=== PATIENT | male | born 1950 | race Caucasian/White ===

== ENCOUNTER 2019-03-12 07:07 | Inpatient (IN) | payer OTHER, BC ==
[2019-03-09 11:28] VITALS: BMI 24.7
[2019-03-12] MEDS ORDERED: HEPARIN NA (PORCINE) 5,000 UNITS/ML 1ML VIAL ONE ×4 (07:15→12:08)
[2019-03-12] MEDS ORDERED: PAPAVERINE HCL 30 MG/1 ML 10 ML VIAL NR ONE ×2 (07:15→12:08)
[2019-03-12] MEDS ORDERED: LIDOCAINE HCL/PF 2% SDV 5ML VIAL ONE ×5 (07:21→12:52)
[2019-03-12] MEDS ORDERED: fentaNYL CITRATE 250 MCG/5 ML VIAL ONE (07:21)
[2019-03-12] MEDS ORDERED: PROPOFOL 20 ML ONE ×3 (07:22)
[2019-03-12] MEDS ORDERED: MIDAZOLAM HCL 2 MG/2 ML SINGLE DOSE VIAL ONE ×2 (07:22)
[2019-03-12] MEDS ORDERED: DEXAMETHASONE SOD PHOSPHATE 4 MG/1 ML VIAL ONE ×2 (07:23→15:16)
[2019-03-12] MEDS ORDERED: PHENYLEPHRINE HCL 10 MG/1 ML SINGLE DOSE VIAL ONE (07:23)
[2019-03-12] MEDS ORDERED: EPHEDRINE SULFATE/0.9% NACL/PF 50 MG/10 ML SYRINGE NR ONE (07:27)
[2019-03-12] MEDS ORDERED: SUCCINYLCHOLINE CHLORIDE 200 MG/10 ML SYRINGE ONE (07:27)
[2019-03-12] MEDS ORDERED: ROCURONIUM BROMIDE 50 MG/5 ML SYRINGE ONE ×3 (07:27→12:13)
--- NOTE | 2019-03-12 09:41 | HP ---
Admitting History and Physical - Admission History of Present Illness: 68 year old man active smoker who has now stopped, complained of pain in both legs and feet when walking several steps. 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 History Source: Patient Limitations to Obtaining History: No Limitations - Smoking History Smoking history: Former smoker Have you smoked in the past 12 months: Yes If you are a former smoker, when did you quit?: 3 weeks ago - Alcohol/Substance Use Hx Alcohol Use: No (stopped 5-6 months ago) Home Medications - Allergies Allergies/Adverse Reactions: Allergies Allergy/AdvReac Type Severity Reaction Status Date / Time No Known Allergies Allergy Verified 03/09/19 11:28 - Home Medications Home Medications: Ambulatory Orders Multivitamin [Multiple Vitamins] 1 each PO DAILY 03/09/19 Varenicline Tartrate [Chantix] 1 mg PO DAILY 03/09/19 traZODone HCL [Trazodone HCl] 100 mg PO HS 03/09/19 Physical Examination Vital Signs: Vital Signs Temperature 98.0 F 03/12/19 07:50 Pulse Rate 91 H 03/12/19 07:50 Respiratory Rate 20 03/12/19 07:50 Blood Pressure 147/90 03/12/19 07:50 O2 Sat by Pulse Oximetry (%) 97 03/12/19 08:13 Constitutional: Yes: No Distress Eyes: Yes: WNL HENT: Yes: WNL Neck: Yes: Supple Cardiovascular: Yes: Regular Rate and Rhythm Respiratory: Yes: Regular Gastrointestinal: Yes: Soft Extremities: Yes: Cool, Cyanosis Edema: No Peripheral Pulses WNL: No (Absent popliteal and pedal pulses bilaterally) Problem List - Problems (1) Atherosclerosis of lower extremity with rest pain Assessment/Plan: Plan bypass left femoral to tibial artery with vein. Angiogram and iliac stent if indicated. Code(s): I70.229 - ATHSCL [place] ARTERIES OF EXTRM W REST PAIN, UNSP EXTREMITY Qualifiers: Peripheral atherosclerosis artery type: [place] artery Laterality: bilateral Qualified Code(s): I70.223 - Atherosclerosis of [place] arteries of extremities with rest pain, bilateral legs
--- NOTE | 2019-03-12 09:51 | HP ---
History & Physical Update - History History: No Change - Physical Physical: No Change - Assessment Assessment: No Change - Plan Plan: No Change
[2019-03-12] MEDS ORDERED: CEFAZOLIN 2 GM/D5W 2 GM/50 ML ML IVPB ONE (09:54)
[2019-03-12] MEDS ORDERED: ceFAZolin SODIUM 1 GM VIAL IVPB ONE (10:15)
[2019-03-12] MEDS ORDERED: ceFAZolin SODIUM 1 GM VIAL ONE ×3 (10:24→22:10)
[2019-03-12] MEDS ORDERED: LIDOCAINE HCL 1%, 10 MG/ML (20ML VIAL) NR ONE (10:44)
[2019-03-12] MEDS ORDERED: HYDROmorphone HCl 2 MG/ML VIAL ONE (12:12)
[2019-03-12] MEDS ORDERED: SODIUM CHLORIDE 0.9% P/F 10 ML VIAL IJ ONE ×2 (13:14→14:11)
[2019-03-12] MEDS ORDERED: LIDOCAINE HCL 2% 100 MG/5 ML DISP.SYRIN ONE ×2 (13:33→14:10)
[2019-03-12] MEDS ORDERED: POVIDONE-IODINE OINTMENT 10% - 28.4 GM TUBE ONE (14:17)
--- NOTE | 2019-03-12 16:25 | OP ---
Operative Note - Note: Operative Date: 03/12/19 Pre-Operative Diagnosis: Ischemic left foot Operation: Angiogram left femoral and runoff. Left femoral endarterectomy, patch profundaplasty. Left femoral to anterior tibial bypass with in situ saphenous vein Findings: Severe occlusive atherosclerosis of left common, superficial and deep femoral arteries. Occlusion popliteal and proximal tibial arteries. Patent AT with run off to DP in foot. Implants: Thin wall Dacron patch Post-Operative Diagnosis: Same as Pre-op Surgeon: Дмитрий Dillon Plastic Welder: Sheyla Miranda Anesthesiologist/VP MARKETING: Keisha Keyes Anesthesia: General Estimated Blood Loss (mls): 300
[2019-03-12] MEDS ORDERED: PROMETHAZINE HCL 25 MG/1 ML VIAL IVPUSH PRN (16:43)
[2019-03-12] MEDS ORDERED: oxyCODONE HCL 5 MG TABLET PO PRN (16:43)
[2019-03-12] MEDS ORDERED: ONDANSETRON 4 MG/2 ML VIAL IVPUSH PRN (16:43)
[2019-03-12] MEDS ORDERED: ALBUTEROL SO4 0.5 % INH SOLN 2.5 MG/0.5 ML VIAL.NEB. NEB PRN (16:44)
[2019-03-12] MEDS ORDERED: ALBUTEROL SO4 2.5/IPRATROPIUM 0.5 INH SOL 3 ML VIAL.NEB. NEB ONE (16:44)
[2019-03-12] MEDS ORDERED: LACTATED RINGERS SOLUTION 1,000 ML IV SCH ×2 (16:45→17:45)
[2019-03-12] MEDS ORDERED: ALBUTEROL SO4 0.083% IH SOL 2.5 MG/3 ML VIAL.NEB. NEB ONE (16:46)
[2019-03-12] MEDS ORDERED: ACETAMINOPHEN 325 MG TABLET (FP) PO PRN (16:54)
[2019-03-12] MEDS ORDERED: DEXTROSE 5%-WATER - 1,000 ML IV SCH (17:00)
[2019-03-12 17:23] LABS: BASO % 0.5 % (0-2.0); EOS % 0.1 % (0-4.5); HEMATOCRIT 43.1 % (35.4-49); HEMOGLOBIN 14.3 GM/dL (11.7-16.9); LYMPH % 7.7 % (8-40); MCH 30.9 pg (25.7-33.7); MCHC 33.3 g/dl (32.0-35.9); MEAN CELL VOLUME 92.9 fl (80-96); MEAN PLT VOLUME 7.2 fl (7.5-11.1); NEUT % 90.7 % (42.8-82.8); PLATELET COUNT 280 K/MM3 (134-434); RBC 4.64 M/mm3 (4.00-5.60); RDW 13.1 % (11.9-15.9); WHITE BLOOD COUNT 11.8 K/mm3 (4.0-10.0)
--- NOTE | 2019-03-12 17:43 | SURG ---
Surgery Or Manager Note Or Manager: Sheyla Miranda PA-C Date of Service: 03/12/19 Diagnosis: Ischemic left foot Procedure: Angiogram left femoral and runoff. Left femoral endarterectomy, patch profundaplasty. Left femoral to anterior tibial bypass with in situ saphenous vein I was present for the entirety of the operative procedure. For further detail, please refer to operative report. Visit type - Case Type Case Type: Scheduled - Emergency Emergency Visit: No - New patient This patient is new to me today: Yes Date on this admission: 03/12/19
[2019-03-12 17:55] LABS: BLOOD UREA NITROGEN 9.6 mg/dL (7-18); CALCIUM 8.8 mg/dL (8.5-10.1); CREATININE 0.7 mg/dL (0.55-1.3); POTASSIUM 4.8 mmol/L (3.5-5.1)
--- NOTE | 2019-03-12 18:22 | CONSULT ---
Consultation: REQUESTING PROVIDER: Dr. Dillon CONSULT REQUEST: We have been asked to medically evaluate this patient for post op care s/p bypass left femoral to tibial artery with vein. HISTORY OF PRESENT ILLNESS: This is a 68 y/o M with no PMH who presented with numbness, pain, balance issues in left leg along with a pulsating sensation in his leg for over a year. Pt endorses to numbness and pain only after walking 6- 7 steps. Pt states the numbness is worse at night and better and slight movement of his leg helps with the numbness. 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 Pt currently denying any chest pain, sob, nausea, or vomiting. Pt has a lingering productive cough. Pt presented to the ICU for close monitoring s/p Left femoral and Left femoral to anterior tibial bypass with in situ saphenous vein endarterectomy with patch profundaplasty. Operative report: Angiogram left femoral and runoff. Operation- Left femoral endarterectomy with patch profundaplasty. Left femoral to anterior tibial bypass with in situ saphenous vein Findings: Severe occlusive atherosclerosis of left common, superficial and deep femoral arteries. Occlusion popliteal and proximal tibial arteries. Patent anterior tibial with run off to dorsalis pedis in foot. 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 REVIEW OF SYSTEMS: negative except as above PHYSICAL EXAMINATION Vital Signs - 24 hr 03/12/19 03/12/19 03/12/19 07:50 08:13 16:34 Temperature 98.0 F 98.7 F Pulse Rate 91 H 112 H Respiratory 20 18 Rate Blood Pressure 147/90 159/83 O2 Sat by Pulse 97 92 L Oximetry (%) 03/12/19 03/12/19 03/12/19 16:50 17:05 17:20 Temperature Pulse Rate 101 H 102 H 104 H Respiratory 18 20 18 Rate Blood Pressure 154/81 152/77 134/75 O2 Sat by Pulse 95 94 L 93 L Oximetry (%) 03/12/19 17:40 Temperature 98.5 F Pulse Rate 106 H Respiratory 18 Rate Blood Pressure 154/77 O2 Sat by Pulse 93 L Oximetry (%) GENERAL: Awake, alert, and fully oriented, in no acute distress. HEAD: Normal with no signs of trauma. LUNGS: Breath sounds equal, wheezing present b/l worse in the bases. HEART: tachycardic, hypotensive regular rhythm, normal S1 and S2 without murmur , rub or gallop. ABDOMEN: Soft, nontender, not distended, no guarding, no rebound. LOWER EXTREMITIES: 2+ pulses, warm, well-perfused. No calf tenderness. No peripheral edema. Pt able to move his toes, pt has right foot bony deformity. PSYCHIATRIC: Cooperative. Good eye contact. Appropriate mood and affect. SKIN: Warm, dry, no rashes or lesions noted. Laboratory Results - last 24 hr 03/12/19 03/12/19 03/12/19 07:12 08:30 16:58 WBC 11.8 H RBC 4.64 Hgb 14.3 Hct 43.1 MCV 92.9 MCH 30.9 MCHC 33.3 RDW 13.1 Plt Count 280 MPV 7.2 L Absolute Neuts (auto) 10.7 H Neutrophils % 90.7 H Lymphocytes % 7.7 L Monocytes % 1.0 L Eosinophils % 0.1 Basophils % 0.5 Nucleated RBC % 0 Sodium Potassium Chloride Carbon Dioxide Anion Gap BUN Creatinine Est GFR (CKD-EPI)AfAm Est GFR (CKD-EPI)NonAf Random Glucose Calcium Blood Type O NEGATIVE O NEGATIVE Antibody Screen Negative 03/12/19 16:58 WBC RBC Hgb Hct MCV MCH MCHC RDW Plt Count MPV Absolute Neuts (auto) Neutrophils % Lymphocytes % Monocytes % Eosinophils % Basophils % Nucleated RBC % Sodium 139 Potassium 4.8 Chloride 107 Carbon Dioxide 25 Anion Gap 7 L BUN 9.6 Creatinine 0.7 Est GFR (CKD-EPI)AfAm 110.82 Est GFR (CKD-EPI)NonAf 95.61 Random Glucose 166 H Calcium 8.8 Blood Type Antibody Screen Active Medications Generic Name Dose Route Start Last Admin Trade Name Freq PRN Reason Stop Dose Admin Acetaminophen 650 mg 03/12/19 16:54 Tylenol - PO Q6H PRN PAIN LEVEL 1 - 3 Albuterol Sulfate 1 amp 03/12/19 16:44 03/12/19 16:45 Ventolin 0.5% - NEB 1 amp Q4H PRN Administration SHORT OF BREATH/WHEEZING Aspirin 81 mg 03/13/19 10:00 Asa - PO DAILY [facility] Chlorhexidine Gluconate 1 applic 03/12/19 22:00 Hibiclens For Decolonization - TP HS [facility] Clopidogrel Bisulfate 75 mg 03/13/19 10:00 Plavix - PO DAILY [facility] Fentanyl 50 mcg 03/12/19 16:43 Sublimaze Injection - IVPUSH 03/13/19 02:00 [id number] PRN PAIN-PACU ORDER X 4 DOSES ONLY Heparin Sodium (Porcine) 5,000 unit 03/12/19 22:00 Heparin - SQ BID [facility] Cefazolin Sodium 1 gm/ 50 mls @ 100 mls/hr 03/12/19 22:00 Dextrose IVPB 03/13/19 06:29 Q8H [facility] Lactated Ringer's 1,000 mls @ 125 mls/hr 03/12/19 16:45 Lactated Ringers Solution IV ASDIR [facility] Lactated Ringer's 1,000 mls @ 100 mls/hr 03/12/19 17:45 03/12/19 17:40 Lactated Ringers Solution IV 0 mls ASDIR [facility] Administration Multivitamins 1 each 03/13/19 10:00 Total B With C - PO DAILY [facility] Mupirocin 1 applic 03/12/19 22:00 Bactroban Ointment (For Decolonization) - NS 03/17/19 21:59 BID [facility] Ondansetron HCl 4 mg 03/12/19 16:43 Zofran Injection IVPUSH Q6H PRN NAUSEA AND/OR VOMITING Oxycodone HCl 5 mg 03/12/19 16:43 Roxicodone - PO Q4H PRN PAIN LEVEL 1-5 Oxycodone HCl 10 mg 03/12/19 17:03 Roxicodone - PO Q4H PRN PAIN LEVEL 6-10 Promethazine HCl 12.5 mg 03/12/19 16:43 Phenergan Injection - IVPUSH Q6H PRN NAUSEA-FOR RESCUE AFTER 15 MIN Trazodone HCl 100 mg 03/12/19 22:00 Desyrel - PO HS [facility] Varenicline 1 mg 03/13/19 10:00 Chantix - PO DAILY [facility] ASSESSMENT/PLAN: This is a 68 y/o M with no PMH who presented with numbness, pain, balance issues in left leg along with a pulsating sensation in his leg for over a year. Pt endorses to numbness and pain only after walking 6-7 steps. Pt states the numbness is worse at night and better and slight movement of his leg helps with the numbness. 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 Pt currently denying any chest pain, sob, nausea, or vomiting. Pt has a lingering productive cough. Pt presented to the ICU for close monitoring s/p Left femoral and Left femoral to anterior tibial bypass with in situ saphenous vein endarterectomy with patch profundaplasty. Neuro - continue trazodone for sleep Vascular-> s/p Left femoral endarterectomy with patch profundaplasty/Left femoral to anterior tibial bypass with in situ saphenous vein - heparin 5K BID SQ - oxycodone Q4HPRN - zofran prn for nausea/promethazine for rescue nausea - ASA 81, Plavix 25 PO started for tm ID-> post op abx - ancef Q8 TID Respiratory-> chronic smoking hx/productive cough - varenicline for smoking cessation - albuterol nebs treatment - o/p PFT's per primary team FENGI - liquid diet - monitor lytes - 125cc/hr LR DVT PPX: Heparin 5K BID Dispo: We will continue to follow the patient. Thank you for this consultative opportunity. Visit type - Emergency Visit Emergency Visit: No - New Patient This patient is new to me today: Yes Date on this admission: 03/12/19 - Critical Care Critical Care patient: Yes Total Critical Care Time (in minutes): 40 Critical Care Statement: The care of this patient involved high complexity decision making to prevent further life threatening deterioration of the patient 's condition and/or to evaluate & treat vital organ system(s) failure or risk of failure.
[2019-03-12] MEDS ORDERED: CHLORHEXIDINE GLUCONATE 4% CLEANSER FOR DECOLONIZATION TP SCH (22:00)
[2019-03-12] MEDS: CEFAZOLIN 1 GM in DEXTROSE 5%-WATER - 50 ML IVPB SCH (22:08)
[2019-03-12] MEDS: MUPIROCIN 2% TOPICAL OINTMENT FOR DECOLONIZATION NS SCH (22:09)
[2019-03-12] MEDS ORDERED: DEXTROSE 5%-WATER - 50 ML IVPB ONE (22:10)
[2019-03-12] MEDS ORDERED: traZODone HCL 50 MG TABLET (FP) ONE (22:10)
[2019-03-12] MEDS: HEPARIN NA (PORCINE) 5,000 UNITS/ML 1ML VIAL SQ SCH (22:12)
[2019-03-12] MEDS: traZODone HCL 100 MG TABLET (FP) PO SCH (22:12)
[2019-03-12] MEDS: oxyCODONE HCL 5 MG TABLET PO PRN (22:25)
[2019-03-13] MEDS ORDERED: ceFAZolin SODIUM 1 GM VIAL ONE (05:43)
[2019-03-13] MEDS ORDERED: DEXTROSE 5%-WATER - 50 ML IVPB ONE (05:43)
[2019-03-13] MEDS: CEFAZOLIN 1 GM in DEXTROSE 5%-WATER - 50 ML IVPB SCH (06:00)
[2019-03-13 06:53] LABS: BLOOD UREA NITROGEN 8.9 mg/dL (7-18); CALCIUM 8.5 mg/dL (8.5-10.1); CREATININE 0.6 mg/dL (0.55-1.3); PHOSPHOROUS 3.8 mg/dL (2.5-4.9)
[2019-03-13 06:54] LABS: BASO % 0.4 % (0-2.0); HEMATOCRIT 38.5 % (35.4-49); LYMPH % 10.9 % (8-40); MCH 31.4 pg (25.7-33.7); MCHC 33.8 g/dl (32.0-35.9); MEAN PLT VOLUME 7.2 fl (7.5-11.1); MONO % 7.8 % (3.8-10.2); NEUT % 80.9 % (42.8-82.8); PLATELET COUNT 254 K/MM3 (134-434); RBC 4.14 M/mm3 (4.00-5.60); RDW 13.4 % (11.9-15.9); WHITE BLOOD COUNT 16.5 K/mm3 (4.0-10.0)
--- NOTE | 2019-03-13 08:50 | PN ---
Progress Note (short form) - Note Progress Note: POD 1 No c/o VSS Left foot warm, 3+ DP doppler Incision clean and dry Labs WNL Stable OOB D/C Egan Transfer to floor care Problem List - Problems (1) Atherosclerosis of lower extremity with rest pain Code(s): I70.229 - ATHSCL [place] ARTERIES OF EXTRM W REST PAIN, UNSP EXTREMITY Qualifiers: Peripheral atherosclerosis artery type: [place] artery Laterality: bilateral Qualified Code(s): I70.223 - Atherosclerosis of [place] arteries of extremities with rest pain, bilateral legs
[2019-03-13] MEDS: VITAMIN B COMPLEX W/C COMBO TABLET (FP) PO SCH (09:29)
[2019-03-13] MEDS: ASPIRIN 81 MG CHEWABLE TABLETS PO SCH (09:30)
[2019-03-13] MEDS: MUPIROCIN 2% TOPICAL OINTMENT FOR DECOLONIZATION NS SCH (09:30)
[2019-03-13] MEDS: CLOPIDOGREL BISULFATE 75 MG TABLET (FP) PO SCH (09:30)
[2019-03-13] MEDS: HEPARIN NA (PORCINE) 5,000 UNITS/ML 1ML VIAL SQ SCH ×2 (09:30→22:24)
[2019-03-13] MEDS: VARENICLINE TARTRATE 1 MG TAB PO SCH (09:35)
[2019-03-13] MEDS ORDERED: PNEUMOC 13-VAL CONJ-DIP CRM/PF 0.5 ML DISP.SYRIN IM ONE (12:00)
--- NOTE | 2019-03-13 12:29 | PN ---
Teaching Attending Note Name of Resident: Evangelista Shields ATTENDING PHYSICIAN STATEMENT I saw and evaluated the patient. I reviewed the resident's note and discussed the case with the resident. I agree with the resident's findings and plan as documented. SUBJECTIVE: Pt seen and examined in the ICU. Pain controlled. OOB to chair. Denies shortness of breath or chest pain. OBJECTIVE: Vital Signs Period Temp Pulse Resp BP Sys/[place] Pulse Ox Last 24 Hr 97.2 F-98.7 F 70-116 12-23 112-167/62-90 92-96 Intake & Output 03/10/19 03/11/19 03/12/19 03/13/19 23:59 23:59 23:59 23:59 Intake Total 2250 1700 Output Total 3050 1300 Balance -800 400 Weight 82.554 kg 82.554 kg Gen: NAD in chair Heart: RRR Lung: scattered rhonchi, wheezes Abd: soft, nontender Ext: dressings dry, +DP CBC, BMP 03/13/19 05:25 03/13/19 05:25 Active Medications Acetaminophen (Tylenol -) 650 mg PO Q6H PRN PRN Reason: PAIN LEVEL 1 - 3 Albuterol Sulfate (Ventolin 0.5% -) 1 amp NEB Q4H PRN PRN Reason: SHORT OF BREATH/WHEEZING Last Admin: 03/12/19 16:45 Dose: 1 amp Aspirin (Asa -) 81 mg PO DAILY [facility] Last Admin: 03/13/19 09:30 Dose: 81 mg Clopidogrel Bisulfate (Plavix -) 75 mg PO DAILY [facility] Last Admin: 03/13/19 09:30 Dose: 75 mg Heparin Sodium (Porcine) (Heparin -) 5,000 unit SQ BID [facility] Last Admin: 03/13/19 09:30 Dose: 5,000 unit Multivitamins (Total B With C -) 1 each PO DAILY [facility] Last Admin: 03/13/19 09:29 Dose: 1 each Ondansetron HCl (Zofran Injection) 4 mg IVPUSH Q6H PRN PRN Reason: NAUSEA AND/OR VOMITING Oxycodone HCl (Roxicodone -) 5 mg PO Q4H PRN PRN Reason: PAIN LEVEL 1-5 Oxycodone HCl (Roxicodone -) 10 mg PO Q4H PRN PRN Reason: PAIN LEVEL 6-10 Last Admin: 03/12/19 22:25 Dose: 10 mg Promethazine HCl (Phenergan Injection -) 12.5 mg IVPUSH Q6H PRN PRN Reason: NAUSEA-FOR RESCUE AFTER 15 MIN Trazodone HCl (Desyrel -) 100 mg PO HS [facility] Last Admin: 03/12/19 22:12 Dose: 100 mg Varenicline (Chantix -) 1 mg PO DAILY [facility] Last Admin: 03/13/19 09:35 Dose: 1 mg ASSESSMENT AND PLAN: Ischemic Left foot/PAD s/p Angiogram Left Femoral/Left Femoral Endarterectomy/Patch Profundaplasty/ Femoral-Anterior Tibial Bypass with Saphenous Vein Smoker Likely COPD - pain control - incentive spirometry - monitor H/H - ASA, plavix - rehab/PT - DVT prophylaxis - can monitor on floor
--- NOTE | 2019-03-13 13:03 | EKG ---
Test Reason : Blood Pressure : / mmHG Vent. Rate : 098 BPM Atrial Rate : 098 BPM P-R Int : 150 ms QRS Dur : 140 ms QT Int : 386 ms P-R-T Axes : 026 075 037 degrees QTc Int : 492 ms SINUS RHYTHM WITH PREMATURE ATRIAL COMPLEXES WITH ABERRANT CONDUCTION RIGHT BUNDLE BRANCH BLOCK ABNORMAL ECG NO PREVIOUS ECGS AVAILABLE Confirmed by MD Katie, Emiliano ([id number]) on 03/13/2019 1:02:54 PM Referred By: Confirmed By:Emiliano Wilson MD
--- NOTE | 2019-03-13 13:12 | PN ---
Progress Note, Physician Chief Complaint: Patient is well known from the office. He underwent left fem-tibial bypass yesterday. Today awake, alert, NAD. History of Present Illness: COPD LS disc herniation, sciatica. 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 RBBB EKG Insomnia. EEX ETOH use disorder Smoking cigarettes-quit. - Current Medication List Current Medications: Active Medications Acetaminophen (Tylenol -) 650 mg PO Q6H PRN PRN Reason: PAIN LEVEL 1 - 3 Albuterol Sulfate (Ventolin 0.5% -) 1 amp NEB Q4H PRN PRN Reason: SHORT OF BREATH/WHEEZING Last Admin: 03/12/19 16:45 Dose: 1 amp Aspirin (Asa -) 81 mg PO DAILY [facility] Last Admin: 03/13/19 09:30 Dose: 81 mg Clopidogrel Bisulfate (Plavix -) 75 mg PO DAILY [facility] Last Admin: 03/13/19 09:30 Dose: 75 mg Heparin Sodium (Porcine) (Heparin -) 5,000 unit SQ BID [facility] Last Admin: 03/13/19 09:30 Dose: 5,000 unit Multivitamins (Total B With C -) 1 each PO DAILY [facility] Last Admin: 03/13/19 09:29 Dose: 1 each Ondansetron HCl (Zofran Injection) 4 mg IVPUSH Q6H PRN PRN Reason: NAUSEA AND/OR VOMITING Oxycodone HCl (Roxicodone -) 5 mg PO Q4H PRN PRN Reason: PAIN LEVEL 1-5 Oxycodone HCl (Roxicodone -) 10 mg PO Q4H PRN PRN Reason: PAIN LEVEL 6-10 Last Admin: 03/12/19 22:25 Dose: 10 mg Promethazine HCl (Phenergan Injection -) 12.5 mg IVPUSH Q6H PRN PRN Reason: NAUSEA-FOR RESCUE AFTER 15 MIN Trazodone HCl (Desyrel -) 100 mg PO HS [facility] Last Admin: 03/12/19 22:12 Dose: 100 mg Varenicline (Chantix -) 1 mg PO DAILY [facility] Last Admin: 03/13/19 09:35 Dose: 1 mg - Objective Vital Signs: Vital Signs Temperature 98.2 F 03/13/19 10:00 Pulse Rate 103 H 03/13/19 10:00 Respiratory Rate 18 03/13/19 10:00 Blood Pressure 148/76 03/13/19 10:00 O2 Sat by Pulse Oximetry (%) 96 03/13/19 09:00 Constitutional: Yes: No Distress, Calm Eyes: Yes: Conjunctiva Clear, EOM Intact HENT: Yes: Atraumatic, Normocephalic Neck: Yes: Supple, Trachea Midline Cardiovascular: Yes: Regular Rate and Rhythm, S1, S2. No: JVD Respiratory: Yes: Regular, CTA Bilaterally, Cough Gastrointestinal: Yes: Normal Bowel Sounds, Soft. No: Abdomen, Obese ...Rectal Exam: Yes: Deferred Genitourinary: No: Anuria, Bladder Distention Breast(s): Yes: WNL, Left, Right Musculoskeletal: Yes: WNL Edema: No Peripheral Pulses WNL: No Wound/Incision: Yes: Dressing Dry and Intact Neurological: Yes: WNL ...Motor Strength: WNL Psychiatric: Yes: WNL Labs: CBC, BMP 03/13/19 05:25 03/13/19 05:25 Problem List - Problems (1) Atherosclerosis of lower extremity with rest pain Assessment/Plan: Underwent left fem-tibial bypass. F/u by vascular surgeon. Code(s): I70.229 - ATHSCL [place] ARTERIES OF EXTRM W REST PAIN, UNSP EXTREMITY Qualifiers: Peripheral atherosclerosis artery type: [place] artery Laterality: bilateral Qualified Code(s): I70.223 - Atherosclerosis of [place] arteries of extremities with rest pain, bilateral legs (2) HTN (hypertension) Assessment/Plan: Norvasc 5 mg Qd Code(s): I10 - ESSENTIAL (PRIMARY) HYPERTENSION Qualifiers: Hypertension type: essential hypertension Qualified Code(s): I10 - Essential (primary) hypertension (3) COPD (chronic obstructive pulmonary disease) Assessment/Plan: Nebs PRN Code(s): J44.9 - CHRONIC OBSTRUCTIVE PULMONARY DISEASE, UNSPECIFIED Qualifiers: COPD type: emphysema
--- NOTE | 2019-03-13 13:43 | PN ---
Physical Exam: SUBJECTIVE: Patient seen and examined at bedside. No acute events overnight. Patient has no complaints, denies f/c/cp/sob/n/v/abdpain, numbness, tingling, pain of the LE. Has passed flatus. OBJECTIVE: GEN: Well appearing, NAD, comfortable. AAOx3 HEENT: NC/AT, EOMI. No facial asymmetry. Normal voice. Supple neck w/ FROM. CV: S1/S2, RRR, no m/r/g LUNG: CTAB, no wheezes, crackles, rales, rhonchi. GI: soft, ndnt, +BS, no guarding, no rebound. No masses. EXTREMITIES: LLE s/p surgery, dressing CDI. Warm LE b/l w/ rapid cap refil. SKIN: warm, dry, normal turgor PSYCH: normal mood and affect NEURO: Moving all extremities well. Seen OOB. Vital Signs Period Temp Pulse Resp BP Sys/[place] Pulse Ox Last 24 Hr 97.2 F-98.7 F 70-116 12-23 112-167/62-90 92-96 Laboratory Results - last 24 hr 03/12/19 03/12/19 03/13/19 16:58 16:58 05:25 WBC 11.8 H 16.5 H RBC 4.64 4.14 Hgb 14.3 13.0 Hct 43.1 38.5 MCV 92.9 93.0 MCH 30.9 31.4 MCHC 33.3 33.8 RDW 13.1 13.4 Plt Count 280 254 MPV 7.2 L 7.2 L Absolute Neuts (auto) 10.7 H 13.3 H Neutrophils % 90.7 H 80.9 Lymphocytes % 7.7 L 10.9 D Monocytes % 1.0 L 7.8 D Eosinophils % 0.1 0.0 D Basophils % 0.5 0.4 Nucleated RBC % 0 0 Sodium 139 Potassium 4.8 Chloride 107 Carbon Dioxide 25 Anion Gap 7 L BUN 9.6 Creatinine 0.7 Est GFR (CKD-EPI)AfAm 110.82 Est GFR (CKD-EPI)NonAf 95.61 Random Glucose 166 H Calcium 8.8 Phosphorus Magnesium 03/13/19 05:25 WBC RBC Hgb Hct MCV MCH MCHC RDW Plt Count MPV Absolute Neuts (auto) Neutrophils % Lymphocytes % Monocytes % Eosinophils % Basophils % Nucleated RBC % Sodium 137 Potassium 4.0 Chloride 102 Carbon Dioxide 29 Anion Gap 7 L BUN 8.9 Creatinine 0.6 Est GFR (CKD-EPI)AfAm 118.07 Est GFR (CKD-EPI)NonAf 101.87 Random Glucose 111 H Calcium 8.5 Phosphorus 3.8 Magnesium 2.0 Active Medications Generic Name Dose Route Start Last Admin Trade Name Freq PRN Reason Stop Dose Admin Acetaminophen 650 mg 03/12/19 16:54 Tylenol - PO Q6H PRN PAIN LEVEL 1 - 3 Albuterol Sulfate 1 amp 03/12/19 16:44 03/12/19 16:45 Ventolin 0.5% - NEB 1 amp Q4H PRN Administration SHORT OF BREATH/WHEEZING Amlodipine Besylate 5 mg 03/14/19 10:00 Norvasc - PO DAILY [facility] Aspirin 81 mg 03/13/19 10:00 03/13/19 09:30 Asa - PO 81 mg DAILY [facility] Administration Clopidogrel Bisulfate 75 mg 03/13/19 10:00 03/13/19 09:30 Plavix - PO 75 mg DAILY [facility] Administration Heparin Sodium (Porcine) 5,000 unit 03/12/19 22:00 03/13/19 09:30 Heparin - SQ 5,000 unit BID [facility] Administration Multivitamins 1 each 03/13/19 10:00 03/13/19 09:29 Total B With C - PO 1 each DAILY [facility] Administration Ondansetron HCl 4 mg 03/12/19 16:43 Zofran Injection IVPUSH Q6H PRN NAUSEA AND/OR VOMITING Oxycodone HCl 5 mg 03/12/19 16:43 Roxicodone - PO Q4H PRN PAIN LEVEL 1-5 Oxycodone HCl 10 mg 03/12/19 17:03 03/12/19 22:25 Roxicodone - PO 10 mg Q4H PRN Administration PAIN LEVEL 6-10 Promethazine HCl 12.5 mg 03/12/19 16:43 Phenergan Injection - IVPUSH Q6H PRN NAUSEA-FOR RESCUE AFTER 15 MIN Trazodone HCl 100 mg 03/12/19 22:00 03/12/19 22:12 Desyrel - PO 100 mg HS [facility] Administration Varenicline 1 mg 03/13/19 10:00 03/13/19 09:35 Chantix - PO 1 mg DAILY [facility] Administration ASSESSMENT/PLAN: 68M no PMH presented with numbness, pain, balance issues in left leg along with a pulsating sensation in his leg for over a year. Admitted to ICU for close monitoring s/p Left femoral and Left femoral to anterior tibial bypass with in situ saphenous vein endarterectomy with patch profundaplasty. Neuro - continue trazodone for sleep Vascular-> s/p Left femoral endarterectomy with patch profundaplasty/Left femoral to anterior tibial bypass with in situ saphenous vein - oxycodone Q4HPRN - zofran prn for nausea/promethazine for rescue nausea - ASA 81, Plavix 25 - PT/OOB - monitor h/h - neurovascular check ID-> post op abx - s/p ancef ppx Respiratory-> chronic smoking hx/productive cough - varenicline for smoking cessation - albuterol nebs treatment - o/p PFT's per primary team - Incentive Spirometry FENGI - liquid diet - monitor lytes - 125cc/hr LR DVT PPX: Heparin 5K BID Dispo: m/s Visit type - Emergency Visit Emergency Visit: No - New Patient This patient is new to me today: Yes Date on this admission: 03/13/19 - Critical Care Critical Care patient: Yes Total Critical Care Time (in minutes): 30 Critical Care Statement: The care of this patient involved high complexity decision making to prevent further life threatening deterioration of the patient 's condition and/or to evaluate & treat vital organ system(s) failure or risk of failure.
--- NOTE | 2019-03-13 13:57 | PN ---
Progress Note (short form) - Note Progress Note: POD #1 s/p L femoral-tibial arterial bypass graft under general anesthesia. Patient doing well, ambulating with assistance, VALDEZ. Denies sore throat, nausea , uncontrolled pain. All questions answered. Care per primary team.
[2019-03-13] MEDS ORDERED: INSULIN (NOVOLOG) ASPART 100 UNITS/ML 10ML VIAL ONE (17:10)
[2019-03-13] MEDS ORDERED: METOPROLOL TARTRATE 5 MG/5 ML VIAL IVPUSH ONE (18:58)
[2019-03-13] MEDS: metoPROLOL SUCCINATE 25 MG TAB.SR.24H (FP) PO SCH ×2 (19:13→22:24)
--- NOTE | 2019-03-13 19:14 | PN ---
Progress Note (short form) - Note Progress Note: Called to patient's bedside for HR >150, maxing at 180. Patient mentating normally with normal blood pressure. Eating comfortably, denies chest pain and shortness of breath. HR resolved after several minutes now down to 105-110. EKG shows sinus tachycardia with rate of 110bpm, regular. QRS widened to 136. T wave inversions in V3. No st elevations/depressions. Prior EKG reviewed, which shows NSR with RBBB pattern, inversions in V2/V3. French, patient's cognos architect, howard. Given 5mg metoprolol IV with 25mg po chaser. Patient remains stable, will transfer to tele due to dysrhythmia.
[2019-03-13] MEDS ORDERED: traZODone HCL 50 MG TABLET (FP) ONE (22:05)
[2019-03-13] MEDS: traZODone HCL 100 MG TABLET (FP) PO SCH (22:24)
[2019-03-13] MEDS: oxyCODONE HCL 5 MG TABLET PO PRN (22:35)
[2019-03-14 06:10] LABS: BASO % 0.4 % (0-2.0); HEMOGLOBIN 12.6 GM/dL (11.7-16.9); WHITE BLOOD COUNT 14.9 K/mm3 (4.0-10.0)
[2019-03-14 06:34] LABS: EOS % 0.1 % (0-4.5); HEMATOCRIT 36.6 % (35.4-49); LYMPH % 13.5 % (8-40); MCH 31.6 pg (25.7-33.7); MCHC 34.4 g/dl (32.0-35.9); MEAN CELL VOLUME 91.6 fl (80-96); MEAN PLT VOLUME 7.4 fl (7.5-11.1); MONO % 9.7 % (3.8-10.2); NEUT % 76.3 % (42.8-82.8); PLATELET COUNT 224 K/MM3 (134-434); RDW 12.8 % (11.9-15.9)
--- NOTE | 2019-03-14 08:18 | PN ---
Progress Note (short form) - Note Progress Note: Comfortable today in bed. Last night episode of tachycardia 162 BPM on a monitor noted. Irregular R-R intervals. Now in SR. Vital Signs - 24 hr 03/13/19 03/13/19 03/13/19 09:00 10:00 12:00 Temperature 98.2 F Pulse Rate 103 H 104 H Respiratory 18 20 Rate Blood Pressure 148/76 162/77 O2 Sat by Pulse 96 Oximetry (%) 03/13/19 03/13/19 03/13/19 14:00 16:00 17:45 Temperature 98.2 F 98.1 F 98.5 F Pulse Rate 110 H 108 H 108 H Respiratory 20 20 Rate Blood Pressure 161/76 142/74 O2 Sat by Pulse Oximetry (%) 03/13/19 03/13/19 03/13/19 18:00 18:27 19:00 Temperature Pulse Rate 123 H 180 H 112 H Respiratory 20 20 Rate Blood Pressure 131/73 178/85 H O2 Sat by Pulse Oximetry (%) 03/13/19 03/13/19 03/14/19 19:12 22:00 00:00 Temperature 98.5 F Pulse Rate 120 H 90 88 Respiratory 20 29 H Rate Blood Pressure 178/85 H 164/74 99/56 L O2 Sat by Pulse 97 Oximetry (%) 03/14/19 03/14/19 03/14/19 02:25 04:00 06:00 Temperature 98.3 F Pulse Rate 84 81 97 H Respiratory 28 H 22 H 24 H Rate Blood Pressure 134/64 91/62 116/57 L O2 Sat by Pulse Oximetry (%) 03/14/19 07:59 Temperature Pulse Rate 88 Respiratory 18 Rate Blood Pressure 121/59 L O2 Sat by Pulse Oximetry (%) Lungs are clear Heart S1S2 regular Abdomen soft, NT LLE dressing clean Surgical team at bedside Positive Doppler pulses Laboratory Results - last 24 hr 03/14/19 05:30 WBC 14.9 H RBC 4.00 Hgb 12.6 Hct 36.6 MCV 91.6 MCH 31.6 MCHC 34.4 RDW 12.8 Plt Count 224 MPV 7.4 L Absolute Neuts (auto) 11.4 H Neutrophils % 76.3 Lymphocytes % 13.5 D Monocytes % 9.7 Eosinophils % 0.1 D Basophils % 0.4 Nucleated RBC % 0 Current Active Problems Problem Status Onset Atherosclerosis of lower extremity with rest pain Acute COPD (chronic obstructive pulmonary disease) Acute HTN (hypertension) RBBB Tachycardia. Acute Plan Cardiology consult-re episode of Fib/Flutter? A/C? Continue metoprolol D/C Norvasc Surgical F/U. Problem List - Problems (1) Atherosclerosis of lower extremity with rest pain Code(s): I70.229 - ATHSCL [place] ARTERIES OF EXTRM W REST PAIN, UNSP EXTREMITY Qualifiers: Peripheral atherosclerosis artery type: [place] artery Laterality: bilateral Qualified Code(s): I70.223 - Atherosclerosis of [place] arteries of extremities with rest pain, bilateral legs (2) HTN (hypertension) Code(s): I10 - ESSENTIAL (PRIMARY) HYPERTENSION Qualifiers: Hypertension type: essential hypertension Qualified Code(s): I10 - Essential (primary) hypertension (3) COPD (chronic obstructive pulmonary disease) Code(s): J44.9 - CHRONIC OBSTRUCTIVE PULMONARY DISEASE, UNSPECIFIED Qualifiers: COPD type: emphysema
--- NOTE | 2019-03-14 08:32 | PN ---
Progress Note (short form) - Note Progress Note: POD #2 left LE bypass patient seen and examined at the bedside with no complaints. Patient was transferred to telemetry unit after his HR >150, maxing at 180. per report patient was mentating normally with normal blood pressure. Eating comfortably, denied chest pain and shortness of breath. HR resolved after several minutes now down to 105-110. EKG shows sinus tachycardia with rate of 110bpm, regular. QRS widened to 136. T wave inversions in V3. No st elevations/depressions. Prior EKG reviewed, which shows NSR with RBBB pattern, inversions in V2/V3. French, patient's drafter castings, paged and patient was Given 5mg metoprolol IV with 25mg po chaser. Patient remained stable over night with no issues. He denies any CP, SOB, N/V, Fever, Chills, H/A, or blurred vision Vital Signs Temp 98.3 F 18/ 06:00 Pulse 88 03/14/ 07:59 Resp 18 03/14/19 07:59 BP 121/59 L 03/14/ 07:59 Pulse Ox 97 03/13/19 22:00 Intake & Output 03/13/03/13/03/14/ 11:59 23:59 11:59 Intake Total 1700 10 Output Total 1300 750 Balance 400 -740 Weight 182 lb Intake: IV 1200 10 Lactated Ringers Solution 1200 1,000 ml @ 100 mls/hr IV ASDIR MIKE Rx#: [id number] saline lock 10 IVPB 200 Oral 300 Output: Urine 1300 750 Egan 1300 350 Void 400 Other: Voiding Method Indwelling Catheter Urinal # Unmeasured Voids Egan 1 1 Void 1 Bowel Movement No No No Weight Measurement Method Built in [facility] CBC, BMP 03/14/ 05:30 03/13/19 05:25 PE: A&Ox3, NAD Unlabored resp on RA SR on telemetry Left LE incision, c/D/I with surrounding tissue intact, no evidence of erythema or d/c. All compartments soft, and supple. DP pulse at +3 on doppler, left and foot warm and well perfused. Problem List - Problems (1) Atherosclerosis of lower extremity with rest pain Assessment/Plan: POD #2 patient doing well, currently in SR 1) Cardiology recs appreciated 2) OOB with assist 3) Continue DVT prophylaxis with B/L scds, aspirin and plavis 4) Encourage IS 5) Keep dressing clean and dry Evaluation and plan discussed with Dr Dillon Code(s): I70.229 - ATHSCL [place] ARTERIES OF EXTRM W REST PAIN, UNSP EXTREMITY Qualifiers: Peripheral atherosclerosis artery type: [place] artery Laterality: bilateral Qualified Code(s): I70.223 - Atherosclerosis of [place] arteries of extremities with rest pain, bilateral legs
[2019-03-14] MEDS: ASPIRIN 81 MG CHEWABLE TABLETS PO SCH (09:16)
[2019-03-14] MEDS: CLOPIDOGREL BISULFATE 75 MG TABLET (FP) PO SCH (09:17)
[2019-03-14] MEDS: metoPROLOL SUCCINATE 25 MG TAB.SR.24H (FP) PO SCH (09:17)
[2019-03-14] MEDS: VITAMIN B COMPLEX W/C COMBO TABLET (FP) PO SCH (09:17)
[2019-03-14] MEDS: HEPARIN NA (PORCINE) 5,000 UNITS/ML 1ML VIAL SQ SCH ×2 (09:17→21:25)
[2019-03-14] MEDS ORDERED: METOPROLOL TARTRATE 5 MG/5 ML VIAL ONE ×2 (09:25→10:11)
[2019-03-14] MEDS ORDERED: METOPROLOL TARTRATE 5 MG/5 ML VIAL IVPUSH ONE ×2 (09:30→09:32)
[2019-03-14] MEDS ORDERED: amLODIPine BESYLATE 5 MG TABLET (FP) PO SCH (10:00)
[2019-03-14] MEDS ORDERED: dilTIAZem HCL 25 MG/5 ML - 5 ML VIAL ONE ×2 (10:19→19:57)
[2019-03-14] MEDS ORDERED: METOPROLOL TARTRATE 5 MG/5 ML VIAL IVPUSH PRN (10:54)
[2019-03-14] MEDS: DILTIAZEM INJECTION 125 MG in DEXTROSE 5%-WATER - 100 ML IVPB SCH ×2 (11:00→20:01)
--- NOTE | 2019-03-14 11:25 | EKG ---
Test Reason : Blood Pressure : / mmHG Vent. Rate : 110 BPM Atrial Rate : 110 BPM P-R Int : 140 ms QRS Dur : 136 ms QT Int : 366 ms P-R-T Axes : 029 067 031 degrees QTc Int : 495 ms SINUS TACHYCARDIA NON-SPECIFIC INTRA-VENTRICULAR CONDUCTION BLOCK NONSPECIFIC T WAVE ABNORMALITY ABNORMAL ECG WHEN COMPARED WITH ECG OF 12-MAR-2019 20:02, ABERRANT CONDUCTION IS NO LONGER PRESENT NON-SPECIFIC INTRA-VENTRICULAR CONDUCTION BLOCK HAS REPLACED RIGHT BUNDLE BRANCH BLOCK Confirmed by DAYANA MIMS, TIM ([id number]) on 03/14/2019 11:25:36 AM Referred By: Confirmed By:TIM ANNE MD
--- NOTE | 2019-03-14 11:28 | EKG ---
Test Reason : Blood Pressure : / mmHG Vent. Rate : 140 BPM Atrial Rate : 153 BPM P-R Int : 000 ms QRS Dur : 132 ms QT Int : 294 ms P-R-T Axes : 000 084 024 degrees QTc Int : 448 ms ATRIAL FIBRILLATION WITH RAPID VENTRICULAR RESPONSE RIGHT BUNDLE BRANCH BLOCK ABNORMAL ECG WHEN COMPARED WITH ECG OF 13-MAR-2019 18:52, ATRIAL FIBRILLATION HAS REPLACED SINUS RHYTHM RIGHT BUNDLE BRANCH BLOCK HAS REPLACED NON-SPECIFIC INTRA-VENTRICULAR CONDUCTION BLOCK Confirmed by TIM ANNE MD ([id number]) on 03/14/2019 11:28:11 AM [facility] Confirmed By:TIM ANNE MD
--- NOTE | 2019-03-14 11:54 | CON.CARD ---
Consult Consult Specialty:: cardiology Referred by:: Medicine Reason for Consultation:: atrial flutter, tachycardia - History of Present Illness Chief Complaint: post op fem-tibial bypass History of Present Illness: 68M h/o smoking, PAD now s/p Left femoral to anterior tibial bypass with in situ saphenous vein endarterectomy with patch profundaplasty 03/13 with post op afib with RVR. He saw a nutrition director for preoperative evaluation and reportedly echo was normal. no chest pain, palpitations, dizziness, lightheadedness. Was admitted for post op monitoring, transferred to telemetry for tachycardia with HR 150s-180s while asymptomtaic, received IV metoprolol and converted to sinus. This morning has been in afib with RVR rates 130s-180s , remains asymptomatic. - Alcohol/Substance Use Hx Alcohol Use: No (stopped 5-6 months ago) - Smoking History Smoking history: Former smoker Have you smoked in the past 12 months: Yes If you are a former smoker, when did you quit?: 3 weeks ago Home Medications - Allergies Allergies/Adverse Reactions: Allergies Allergy/AdvReac Type Severity Reaction Status Date / Time No Known Allergies Allergy Verified 03/09/19 11:28 - Home Medications Home Medications: Ambulatory Orders Multivitamin [Multiple Vitamins] 1 each PO DAILY 03/09/19 Varenicline Tartrate [Chantix] 1 mg PO DAILY 03/09/19 traZODone HCL [Trazodone HCl] 100 mg PO HS 03/09/19 Family Disease History - Family Disease History Family History: Unremarkable Review of Systems - Review of Systems Constitutional: reports: No Symptoms Eyes: reports: No Symptoms HENT: reports: No Symptoms Neck: reports: No Symptoms Cardiovascular: reports: No Symptoms Respiratory: reports: No Symptoms Gastrointestinal: reports: No Symptoms Genitourinary: reports: No Symptoms Musculoskeletal: reports: No Symptoms Integumentary: reports: No Symptoms Neurological: reports: No Symptoms Endocrine: reports: No Symptoms Hematology/Lymphatic: reports: No Symptoms Vital Signs: Vital Signs Temperature 98.3 F 03/14/19 06:00 Pulse Rate 144 H 03/14/19 09:00 Respiratory Rate 18 03/14/19 09:00 Blood Pressure 100/64 03/14/19 09:00 O2 Sat by Pulse Oximetry (%) 98 03/14/19 09:00 Constitutional: Yes: No Distress, Calm Eyes: Yes: Conjunctiva Clear, EOM Intact HENT: Yes: Atraumatic, Normocephalic Neck: Yes: Supple, Trachea Midline Respiratory: Yes: Regular, CTA Bilaterally Gastrointestinal: Yes: Normal Bowel Sounds, Soft Cardiovascular: Yes: Tachycardia, Pulse Irregular JVD: No PMI: Non-Displaced Heart Sounds: Yes: S1, S2 Peripheral Pulses WNL: No Integumentary: No: Jaundice Neurological: Yes: Alert, Oriented Psychiatric: No: Agitated - Other Data Labs, Other Data: CBC, BMP 03/14/19 05:30 03/13/19 05:25 Assessment/Plan EKG: afib with RVR, RBBB, 140 bpm tele: sinus -> afib with RVR 130s-140s, occ 180s atrial fibrillation with RVR - echo pending - received metoprolol IV with minimal improvement, now on diltiazem gtt - if rate remains elevated will consider amiodarone gtt - [id number] warrants AC - POD1 from L fem to ant tibial bypass, start AC when feasible per vascular PAD s/p bypass - manage per vascular, on dapt HTN - monitor BP on current meds COPD - manage per primary
--- NOTE | 2019-03-14 13:27 | PN ---
Progress Note (short form) - Note Progress Note: PULMONARY/CCM Found to be in rapid atrial fibrillation this AM. Refractory to lopressor pushes , started on cardizem gtt. Denies shortness of breath, chest pain or palpitations. No fevers or chills. Vital Signs Period Temp Pulse Resp BP Sys/Faulkner Pulse Ox Last 24 Hr 98.1 F-98.5 F 81-180 18-29 91-178/56-85 97-98 Intake & Output 03/11/19 03/12/19 03/13/19 03/14/19 23:59 23:59 23:59 23:59 Intake Total 2250 1710 260 Output Total 3050 2050 300 Balance -800 -340 -40 Weight 82.554 kg 82.554 kg Gen: NAD at rest Heart: tachycardic, irregular Lung: decreased breath sounds at the bases Abd: soft, nontender Ext: no edema CBC, BMP 03/14/19 05:30 03/13/19 05:25 Active Medications Acetaminophen (Tylenol -) 650 mg PO Q6H PRN PRN Reason: PAIN LEVEL 1 - 3 Last Admin: 03/14/19 02:06 Dose: 650 mg Albuterol Sulfate (Ventolin 0.5% -) 1 amp NEB Q4H PRN PRN Reason: SHORT OF BREATH/WHEEZING Last Admin: 03/12/19 16:45 Dose: 1 amp Aspirin (Asa -) 81 mg PO DAILY [facility] Last Admin: 03/14/19 09:16 Dose: 81 mg Clopidogrel Bisulfate (Plavix -) 75 mg PO DAILY [facility] Last Admin: 03/14/19 09:17 Dose: 75 mg Heparin Sodium (Porcine) (Heparin -) 5,000 unit SQ BID [facility] Last Admin: 03/14/19 09:17 Dose: 5,000 unit Diltiazem HCl 125 mg/ Dextrose 125 mls @ 5 mls/hr IVPB TITR MIKE; Protocol Last Admin: 03/14/19 11:00 Dose: 5 mg/hr, 5 mls/hr Metoprolol Succinate (Toprol Xl -) 25 mg PO BID [facility] Last Admin: 03/14/19 09:17 Dose: 25 mg Metoprolol Tartrate (Lopressor Injection -) 5 mg IVPUSH Q4H PRN PRN Reason: HYPERTENSION Multivitamins (Total B With C -) 1 each PO DAILY [facility] Last Admin: 03/14/19 09:17 Dose: 1 each Ondansetron HCl (Zofran Injection) 4 mg IVPUSH Q6H PRN PRN Reason: NAUSEA AND/OR VOMITING Oxycodone HCl (Roxicodone -) 5 mg PO Q4H PRN PRN Reason: PAIN LEVEL 1-5 Oxycodone HCl (Roxicodone -) 10 mg PO Q4H PRN PRN Reason: PAIN LEVEL 6-10 Last Admin: 03/13/19 22:35 Dose: 10 mg Promethazine HCl (Phenergan Injection -) 12.5 mg IVPUSH Q6H PRN PRN Reason: NAUSEA-FOR RESCUE AFTER 15 MIN Trazodone HCl (Desyrel -) 100 mg PO HS [facility] Last Admin: 03/13/19 22:24 Dose: 100 mg Varenicline (Chantix -) 1 mg PO DAILY [facility] Last Admin: 03/13/19 09:35 Dose: 1 mg A/P Ischemic Left foot/PAD s/p Angiogram Left Femoral/Left Femoral Endarterectomy/Patch Profundaplasty/ Femoral-Anterior Tibial Bypass with Saphenous Vein New Onset Atrial Fibrillation with RVR Smoker Likely COPD - cardizem gtt for rate control - start anticoagulation when ok with surgery - echocardiogram - trend cardiac enzymes - pain control - incentive spirometry - monitor H/H - ASA, plavix - rehab/PT - DVT prophylaxis
--- NOTE | 2019-03-14 13:49 | ECHO ---
Name: KANDY OCAMPO Exam:Adult Echocardiogram Study Date: 03/14/2019 10:30 AM Age: 68 yrs Reason For Study: Tachycardia Height: 72 in Weight: 182 lb BSA: 2.0 m2 MMode/2D Measurements & Calculations IVSd: 0.97 cm Ao root diam: 3.6 cm LVIDd: 4.6 cm LA dimension: 3.8 cm LVIDs: 3.1 cm LVPWd: 1.0 cm EDV(Teich): 97.4 ml LVOT diam: 2.0 cm ESV(Teich): 38.8 ml Doppler Measurements & Calculations MV E max giorgi: 108.1 cm/sec Ao V2 max: 142.5 cm/sec MV A max giorgi: 33.6 cm/sec Ao max P.1 mmHg MV E/A: 3.2 Ao V2 mean: 103.9 cm/sec MV dec time: 0.15 sec Ao mean P.9 mmHg Ao V2 VTI: 25.2 cm RAUDEL(I,D): 3.1 cm2 RAUDEL(V,D): 2.7 cm2 LV V1 max P.6 mmHg SV(LVOT): 78.1 ml LV V1 mean P.9 mmHg LV V1 max: 118.0 cm/sec LV V1 mean: 78.6 cm/sec LV V1 VTI: 24.3 cm TR max giorgi: 164.4 cm/sec Med Peak E' Giorgi: 13.2 cm/sec TR max P.8 mmHg Med E/e': 8.2 Lat Peak E' Giorgi: 8.4 cm/sec Lat E/e': 12.9 Procedure The study was technically difficult with many images being suboptimal in quality. A two-dimensional transthoracic echocardiogram with color flow and Doppler was performed. Left Ventricle The left ventricular size, thickness and function are normal. The left ventricular ejection fraction is normal. Regional wall motion abnormalities cannot be excluded due to limited visualization. Right Ventricle The right ventricle is not well visualized. Atria Normal left and right atrial size and function. Mitral Valve There is trivial mitral valve thickening. There is no mitral valve stenosis. There is trace to mild m itral regurgitation. Tricuspid Valve The tricuspid valve is not well visualized. There is no tricuspid stenosis. There is trace tricuspid regurgitation. Right ventricular systolic pressure is normal. Aortic Valve The aortic valve is not well visualized. No hemodynamically significant valvular aortic stenosis. No aortic regurgitation is present. Pulmonic Valve The pulmonic valve is not well visualized. Great Vessels The aortic root is normal size. Pericardium/Pleura There is no pericardial effusion. Interpretation Summary The study was technically difficult with many images being suboptimal in quality. The left ventricular size, thickness and function are normal The left ventricular ejection fraction is normal. There is trace to mild mitral regurgitation. There is trace tricuspid regurgitation. Right ventricular systolic pressure is normal. MD Jesus Sage 03/14/2019 01:49 PM
[2019-03-14] MEDS: VARENICLINE TARTRATE 1 MG TAB PO SCH (16:35)
--- NOTE | 2019-03-14 18:01 | PATH ---
Surgical Pathology Report Patient Name: KANDY OCAMPO Med. Rec. #: [id number] /Age/Gender: 1950 (Age: 68) / M Account: [id number] Location: ICU HONEY PROCESSOR Taken: 03/12/2019 Received: 03/13/2019 Reported: 03/14/2019 Physicians: Дмитрий Dillon M.D. Specimen(s) Received PLAQUE FROM LEFT PROXIMAL FEMORAL ARTERY Clinical History Femoral artery occlusion Final Diagnosis PLAQUE, PROXIMAL FEMORAL ARTERY, LEFT, FEMORAL DISTAL BYPASS: ATHEROMATOUS AND CALCIFIED PLAQUE. Electronically Signed Yvette Jin M.D. Gross Description Received in formalin labeled "plaque from left proximal femoral artery" are multiple yellow-sagastume fragments of partially calcified and focally hemorrhagic plaque material measuring 4 x 2.5 x 2 cm in aggregate. [employer] Project Manager sections are submitted after decalcification in one cassette. MLSZ/03/13/2019 sangisselle/03/13/2019
[2019-03-14] MEDS: dilTIAZem HCL 30 MG TABLET (FP) PO SCH ×2 (18:19→23:48)
[2019-03-14] MEDS ORDERED: traZODone HCL 50 MG TABLET (FP) ONE (21:05)
[2019-03-14] MEDS: traZODone HCL 100 MG TABLET (FP) PO SCH (21:26)
[2019-03-14] MEDS: oxyCODONE HCL 5 MG TABLET PO PRN (23:49)
[2019-03-15] MEDS: dilTIAZem HCL 30 MG TABLET (FP) PO SCH ×3 (07:23→17:55)
--- NOTE | 2019-03-15 07:37 | PN ---
Progress Note, Physician Chief Complaint: Episodes of rapid A.Fib yesterday. Today SR. On Cardizem PO and Metoprolol. Awaiting surgical permission to start A/C History of Present Illness: COPD LS disc herniation, sciatica. 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 RBBB EKG Insomnia. EEX ETOH use disorder Smoking cigarettes-quit. - Current Medication List Current Medications: Active Medications Acetaminophen (Tylenol -) 650 mg PO Q6H PRN PRN Reason: PAIN LEVEL 1 - 3 Last Admin: 03/14/19 02:06 Dose: 650 mg Albuterol Sulfate (Ventolin 0.5% -) 1 amp NEB Q4H PRN PRN Reason: SHORT OF BREATH/WHEEZING Last Admin: 03/12/19 16:45 Dose: 1 amp Aspirin (Asa -) 81 mg PO DAILY [facility] Last Admin: 03/14/19 09:16 Dose: 81 mg Clopidogrel Bisulfate (Plavix -) 75 mg PO DAILY [facility] Last Admin: 03/14/19 09:17 Dose: 75 mg Diltiazem HCl (Cardizem -) 30 mg PO Q6HPO [facility] Last Admin: 03/15/19 07:23 Dose: Not Given Heparin Sodium (Porcine) (Heparin -) 5,000 unit SQ BID [facility] Last Admin: 03/14/19 21:25 Dose: 5,000 unit Diltiazem HCl 125 mg/ Dextrose 125 mls @ 5 mls/hr IVPB TITR [facility]; Protocol Last Titration: 03/14/19 23:49 Dose: 0 mg/hr, 0 mls/hr Multivitamins (Total B With C -) 1 each PO DAILY [facility] Last Admin: 03/14/19 09:17 Dose: 1 each Ondansetron HCl (Zofran Injection) 4 mg IVPUSH Q6H PRN PRN Reason: NAUSEA AND/OR VOMITING Oxycodone HCl (Roxicodone -) 5 mg PO Q4H PRN PRN Reason: PAIN LEVEL 1-5 Oxycodone HCl (Roxicodone -) 10 mg PO Q4H PRN PRN Reason: PAIN LEVEL 6-10 Last Admin: 03/14/19 23:49 Dose: 10 mg Promethazine HCl (Phenergan Injection -) 12.5 mg IVPUSH Q6H PRN PRN Reason: NAUSEA-FOR RESCUE AFTER 15 MIN Trazodone HCl (Desyrel -) 100 mg PO HS [facility] Last Admin: 03/14/19 21:26 Dose: 100 mg Varenicline (Chantix -) 1 mg PO DAILY [facility] Last Admin: 03/14/19 16:35 Dose: 1 mg - Objective Vital Signs: Vital Signs Temperature 97.8 F 03/15/19 06:00 Pulse Rate 80 03/15/19 06:00 Respiratory Rate 21 H 03/15/19 06:00 Blood Pressure 99/57 L 03/15/19 06:00 O2 Sat by Pulse Oximetry (%) 98 03/14/19 21:00 Constitutional: Yes: Anxious, Mild Distress Eyes: Yes: Conjunctiva Clear, EOM Intact HENT: Yes: Atraumatic, Normocephalic Neck: Yes: Supple, Trachea Midline Cardiovascular: Yes: Pulse Irregular (APC), S1, S2. No: JVD Respiratory: Yes: Regular, CTA Bilaterally. No: Wheezes Gastrointestinal: Yes: Normal Bowel Sounds. No: Abdomen, Obese, Ascites, Distention ...Rectal Exam: Yes: Deferred Genitourinary: No: Anuria Breast(s): Yes: WNL Musculoskeletal: No: Back Pain Extremities: Yes: Other (Incisions Clean, judy in place, no bleeding.). No: Cold, Cyanosis Edema: No Integumentary: No: Erythema Wound/Incision: Yes: Well Approximated, Powell Intact Neurological: Yes: WNL ...Motor Strength: WNL Psychiatric: Yes: WNL Labs: CBC, BMP 03/14/19 05:30 03/13/19 05:25 Problem List - Problems (1) Atherosclerosis of lower extremity with rest pain Assessment/Plan: Underwent left fem-tibial bypass. F/u by vascular surgeon. Code(s): I70.229 - ATHSCL [place] ARTERIES OF EXTRM W REST PAIN, UNSP EXTREMITY Qualifiers: Peripheral atherosclerosis artery type: [place] artery Laterality: bilateral Qualified Code(s): I70.223 - Atherosclerosis of [place] arteries of extremities with rest pain, bilateral legs (2) HTN (hypertension) Assessment/Plan: Norvasc 5 mg Qd Code(s): I10 - ESSENTIAL (PRIMARY) HYPERTENSION Qualifiers: Hypertension type: essential hypertension Qualified Code(s): I10 - Essential (primary) hypertension (3) COPD (chronic obstructive pulmonary disease) Assessment/Plan: Nebs PRN Code(s): J44.9 - CHRONIC OBSTRUCTIVE PULMONARY DISEASE, UNSPECIFIED Qualifiers: COPD type: emphysema (4) Atrial fib/flutter, transient Assessment/Plan: Will continue telemetry. Start Eliquis when allowed by surgical team Code(s): TLQ5681 -
--- NOTE | 2019-03-15 07:45 | PN ---
Progress Note (short form) - Note Progress Note: POD #3 left LE bypass patient seen and examined at the bedside with no complaints. Patient remains on telemetry unit and still having episodes of rapid afib. Patient remains stable over night with no issues. He denies any CP , SOB, N/V, Fever, Chills, H/A, or blurred vision Vital Signs Temp 97.8 F 03/15/ 06:00 Pulse 80 03/15/19 06:00 Resp 21 H 03/15/19 06:00 BP 99/57 L 03/15/ 06:00 Pulse Ox 98 03/14/19 21:00 Intake & Output 18/03/14/19 03/15/19 11:59 23:59 11:59 Intake Total 260 15 Output Total 1700 Balance 260 -1700 15 Weight 185 lb 11.2 oz Intake: IV 15 Cardizem Injection - 125 15 mg In D5w - 100 ml @ 5 MG /HR 5 mls/hr IVPB TITR MIKE Rx#:[id number] Oral 260 Output: Urine 1700 Egan 300 Void 1400 Other: Voiding Method Urinal Urinal # Unmeasured Voids Egan 1 Void 1 2 Bowel Movement No No No Weight Measurement Method Built in [facility] CBC, BMP 09/18/ 05:30 // 05:25 PE: A&Ox3, NAD Unlabored resp on RA SR on telemetry Left LE incision, c/D/I with surrounding tissue intact, no evidence of erythema or d/c. All compartments soft, and supple. DP pulse at +3 on doppler, left and foot warm and well perfused. Problem List - Problems (1) Atherosclerosis of lower extremity with rest pain Assessment/Plan: POD #3 patient doing well. Ok to start eliquis this morning-stop plavix. 1) Stop Plavix and start Eliquis 5mg BID, continue Aspirin 2) Cardiology recs appreciated 3) OOB with assist 4) Continue DVT prophylaxis with B/L scds, aspirin and plavis 5) Encourage IS 6) Keep dressing clean and dry Evaluation and plan discussed with Dr Dillon Code(s): I70.229 - ATHSCL [place] ARTERIES OF EXTRM W REST PAIN, UNSP EXTREMITY Qualifiers: Peripheral atherosclerosis artery type: [place] artery Laterality: bilateral Qualified Code(s): I70.223 - Atherosclerosis of [place] arteries of extremities with rest pain, bilateral legs
[2019-03-15] MEDS ORDERED: PT OWN MED DRAWER 7, Y5N ONE (10:18)
[2019-03-15] MEDS: ASPIRIN 81 MG CHEWABLE TABLETS PO SCH (10:19)
[2019-03-15] MEDS: APIXABAN 5 MG TABLET PO SCH ×2 (10:19→21:40)
[2019-03-15] MEDS: VARENICLINE TARTRATE 1 MG TAB PO SCH (10:19)
[2019-03-15] MEDS: VITAMIN B COMPLEX W/C COMBO TABLET (FP) PO SCH (10:19)
--- NOTE | 2019-03-15 10:42 | PN ---
Progress Note (short form) - Note Progress Note: s: no cp sob palps dizzy o: Vital Signs Period Temp Pulse Resp BP Sys/Faulkner Pulse Ox Last 24 Hr 97.8 F-98.4 F 80-158 18-23 93-139/53-72 98 Constitutional: Yes: No Distress, Calm Eyes: Yes: Conjunctiva Clear Neck: Yes: Supple, Trachea Midline Respiratory: Yes: Regular, CTA Bilaterally Gastrointestinal: Yes: Normal Bowel Sounds, Soft Cardiovascular: Yes: Tachycardia, Pulse Irregular JVD: No PMI: Non-Displaced Heart Sounds: Yes: S1, S2 Peripheral Pulses WNL: No Integumentary: No: Jaundice Neurological: Yes: Alert, Oriented Psychiatric: No: Agitated Current Medications Generic Name Dose Route Start Last Admin Trade Name Freq PRN Reason Stop Dose Admin Acetaminophen 650 mg 03/12/19 16:54 03/14/19 02:06 Tylenol - PO 650 mg Q6H PRN Administration PAIN LEVEL 1 - 3 Albuterol Sulfate 1 amp 03/12/19 16:44 03/12/19 16:45 Ventolin 0.5% - NEB 1 amp Q4H PRN Administration SHORT OF BREATH/WHEEZING Apixaban 5 mg 03/15/19 10:00 03/15/19 10:19 Eliquis - PO 5 mg BID MIKE Administration Aspirin 81 mg 03/13/19 10:00 03/15/19 10:19 Asa - PO 81 mg DAILY MIKE Administration Diltiazem HCl 30 mg 03/14/19 18:00 03/15/19 07:23 Cardizem - PO Not Given Q6HPO MIKE Diltiazem HCl 125 mg/ Dextrose 125 mls @ 5 mls/hr 03/14/19 11:00 03/14/19 23: 49 IVPB 0 mg/hr TITR MIKE 0 mls/hr Titration Protocol 5 MG/HR Multivitamins 1 each 03/13/19 10:00 03/15/19 10:19 Total B With C - PO 1 each DAILY MIKE Administration Ondansetron HCl 4 mg 03/12/19 16:43 Zofran Injection IVPUSH Q6H PRN NAUSEA AND/OR VOMITING Oxycodone HCl 5 mg 03/12/19 16:43 Roxicodone - PO Q4H PRN PAIN LEVEL 1-5 Oxycodone HCl 10 mg 03/12/19 17:03 03/14/19 23:49 Roxicodone - PO 10 mg Q4H PRN Administration PAIN LEVEL 6-10 Promethazine HCl 12.5 mg 03/12/19 16:43 Phenergan Injection - IVPUSH Q6H PRN NAUSEA-FOR RESCUE AFTER 15 MIN Trazodone HCl 100 mg 03/12/19 22:00 03/14/19 21:26 Desyrel - PO 100 mg HS MIKE Administration Varenicline 1 mg 03/13/19 10:00 03/15/19 10:19 Chantix - PO 1 mg DAILY MIKE Administration CBC, BMP 03/14/19 05:30 03/13/19 05:25 Assessment/Plan EKG: afib with RVR, RBBB, 140 bpm tele:afib, rate ok, sr echo 02/2019: nl lv, rv tds, no sig valve path, nl rvsp atrial fibrillation with RVR - echo unremarkable - dilt gtt stopped, now on po dilt, monitor tele - [id number] warrants AC - POD2 from L fem to ant tibial bypass, start AC when feasible per vascular PAD s/p bypass - manage per vascular, on dapt HTN - monitor BP on current meds COPD - manage per primary
[2019-03-15] MEDS ORDERED: PROMETHAZINE HCL 25 MG/1 ML VIAL IVPUSH PRN (12:10)
[2019-03-15] MEDS ORDERED: ALBUTEROL SO4 0.5 % INH SOLN 2.5 MG/0.5 ML VIAL.NEB. NEB PRN (12:10)
[2019-03-15] MEDS ORDERED: ACETAMINOPHEN 325 MG TABLET (FP) PO PRN (12:10)
[2019-03-15] MEDS ORDERED: ONDANSETRON 4 MG/2 ML VIAL IVPUSH PRN (12:10)
[2019-03-15] MEDS ORDERED: oxyCODONE HCL 5 MG TABLET PO PRN ×2 (12:10)
[2019-03-15] MEDS ORDERED: CEFAZOLIN 2 GM/D5W 2 GM/50 ML ML IVPB ONE (12:10)
--- NOTE | 2019-03-15 15:27 | OP ---
DATE OF OPERATION: 03/12/2019 SURGEON: Дмитрий Dillon MD TAWER: MARCO ANTONIO Hansen PROCEDURE: Angiogram, left femoral artery with distal runoff, left femoral endarterectomy with patch profundoplasty. Left femoral to anterior tibial bypass with in situ saphenous vein. ANESTHESIA: General. ANESTHESIOLOGIST: Keisha Keyes MD OPERATIVE FINDINGS: There was severe occlusive atherosclerosis involving the left common femoral, superficial and deep femoral arteries. There was occlusion of the distal femoral, popliteal, and proximal tibial arteries. The anterior tibial artery was patent in the mid calf with runoff to the dorsalis pedis artery in the foot. OPERATIVE PROCEDURE: Following routine patient identification with side and site verification, general anesthesia was induced. Egan catheter was placed. The left leg, groin, and lower abdomen were prepped with ChloraPrep. Timeout was performed. Under ultrasound guidance, a needle was placed into the left common femoral artery and a wire passed proximally. A micropuncture catheter was then advanced over the wire. Angiography was performed through the catheter to visualize the distal iliac artery which appeared patent with no severe stenosis. The left femoral artery was occluded. The deep and superficial femoral arteries were occluded. Reconstitution of tibial arteries in the mid calf was poorly seen. The needle was removed and pressure applied in the groin until bleeding ceased. Incision was made on the lateral aspect of the left calf midway between the tibia and fibula. Subcutaneous tissues were divided using cautery for hemostasis. The muscle fascia was incised. The muscle bellies of the anterior compartment were , and the neurovascular bundle identified. The anterior tibial artery was checked with the Doppler, and arterial flow could be heard. The artery was then mobilized from the surrounding tissues and secured with vessel loops. Crossing veins were ligated with silk ties and divided. The artery was encircled proximally and distally with vessel loops. Small branches were ligated and divided. The wound was packed with moist gauze. The saphenous vein was then exposed from the lower calf to the groin with a long skin incision. The vein was cannulated distally and distended with heparin and papaverine solution during the dissection. All side branches were ligated with silk ties. The proximal and distal ends of the vein were mobilized and secured with vessel loops. The saphenofemoral junction was completely dissected , and all branches of the vein were ligated and divided. The femoral artery was then exposed through the groin incision. It was exposed proximally, and the inguinal ligament was incised to gain access to the distal external iliac artery. The femoral artery was severely calcified, but the distal external iliac was soft enough for a vascular clamp. All large branches of the femoral artery were secured with vessel loops. The deep femoral artery was dissected distally to its first bifurcation. The artery was heavily calcified as well. The distal branches were secured with vessel loops. Patient was systemically heparinized. The common femoral artery was then opened with a long arteriotomy which was extended down onto the origin of the profunda. Endarterectomy was performed with removal of plaque from the common and deep femoral arteries. Inflow was checked and was adequate. The arteriotomy was closed with a thin collagen-coated Dacron patch extending down onto the profunda femoris artery. After the patch was sewn in with 6-0 Prolene, flow was restored to the deep femoral and checked with a Doppler where pulsatile flow was heard. The arteries were then re-occluded, and the patch was incised. The lumen was flushed with heparin solution. The saphenous vein was then amputated from the common femoral vein which was occluded with a vascular clamp. The stump was oversewn with a running suture of 6-0 Prolene. The end of the vein was then spatulated and the terminal valve excised. The vein was then anastomosed to the patch using running suture of 6-0 Prolene. Prior to completion of the suture line, the arteries were again allowed to back bleed and flush. The suture line was completed, and clamps were removed. The vein filled to the first competent valve repair. Modified Brown valvulotome was then used to perform valvulotomy for the entire length of the vein. Flow through the distal end was pulsatile. The distal vein was marked to prevent twisting. It was then passed through a tunnel on the underside of the tibia from medial to lateral calf. The vein was brought down to the anterior tibial artery. The artery was occluded with Yasargil clips and opened on exposed surface with a 12-mm arteriotomy. Backbleeding from the distal artery was checked, and the artery was flushed with heparin solution. The vein was then spatulated and anastomosed to the side of the artery using running suture of 6-0 Prolene. Prior to completion of the suture line, the artery was allowed to back bleed, and the vein graft was flushed. Suture line was completed, and the vessels were released. There was good flow through the anastomosis with a strong Doppler signal in the distal artery. The proximal vein was then cannulated with an Angiocath and angiography performed. This showed good flow through the vein graft with an untied side branch which was later identified and ligated. No uncut valve leaflets were visualized. The needle was removed, and bleeding controlled with a pursestring suture of 6-0 Prolene. All wounds were then irrigated. The incisions were closed with interrupted and running suture of 3-0 Vicryl. The inguinal ligament was repaired with [id number] sutures of 2-0 Vicryl. The skin incisions were all closed with skin judy. Sterile dressings were applied, and the patient was taken to the recovery room in stable condition. Ankit [id number] MTDD
[2019-03-15] MEDS: traZODone HCL 50 MG TABLET (FP) PO SCH (23:57)
[2019-03-16] MEDS: dilTIAZem HCL 30 MG TABLET (FP) PO SCH ×3 (00:04→11:59)
--- NOTE | 2019-03-16 08:12 | PN ---
Progress Note (short form) - Note Progress Note: Awake, alert, NAD in bed. SR with APC on the monitor. Started on Eliquis and ASA. Ambulated yesterday. Vital Signs - 24 hr 03/15/19 03/15/19 03/15/19 09:00 10:00 12:00 Temperature Pulse Rate 86 89 Respiratory 24 H 20 Rate Blood Pressure 112/64 113/96 O2 Sat by Pulse 99 Oximetry (%) 03/15/19 03/15/19 03/15/19 14:00 16:00 18:00 Temperature 98.6 F 98.5 F Pulse Rate 88 88 88 Respiratory 20 24 H 18 Rate Blood Pressure 104/55 L 121/67 138/79 O2 Sat by Pulse Oximetry (%) 03/15/19 03/15/19 03/15/19 20:00 20:23 21:00 Temperature Pulse Rate 91 H 92 H Respiratory 24 H 24 H Rate Blood Pressure 97/60 144/69 O2 Sat by Pulse 99 Oximetry (%) 03/15/19 03/16/19 03/16/19 22:00 00:00 02:00 Temperature 98.7 F 98.3 F Pulse Rate 91 H 86 Respiratory 17 26 H Rate Blood Pressure 128/71 112/78 106/63 O2 Sat by Pulse Oximetry (%) 03/16/19 04:00 Temperature 98.3 F Pulse Rate 89 Respiratory 21 H Rate Blood Pressure 105/67 O2 Sat by Pulse Oximetry (%) Lungs are Clear Heart S1S2 irregular -SR with APC. Abdomen soft, NT, no HSM Ext-warm, no cyanosis, LLE judy intact, dressing clean Current Active Problems Problem Status Onset Atherosclerosis of lower extremity with rest pain Acute Atrial fib/flutter, transient Acute COPD (chronic obstructive pulmonary disease) Acute HTN (hypertension) Acute Plan D/C as per surgeon Continue Eliquis, ASA, start Metoprolol QD Patient will follow with surgeon and business operations director as outpatient. Problem List - Problems (1) Atherosclerosis of lower extremity with rest pain Code(s): I70.229 - ATHSCL [place] ARTERIES OF EXTRM W REST PAIN, UNSP EXTREMITY Qualifiers: Peripheral atherosclerosis artery type: [place] artery Laterality: bilateral Qualified Code(s): I70.223 - Atherosclerosis of [place] arteries of extremities with rest pain, bilateral legs (2) HTN (hypertension) Code(s): I10 - ESSENTIAL (PRIMARY) HYPERTENSION Qualifiers: Hypertension type: essential hypertension Qualified Code(s): I10 - Essential (primary) hypertension (3) COPD (chronic obstructive pulmonary disease) Code(s): J44.9 - CHRONIC OBSTRUCTIVE PULMONARY DISEASE, UNSPECIFIED Qualifiers: COPD type: emphysema (4) Atrial fib/flutter, transient Code(s): CFC3986 -
--- NOTE | 2019-03-16 08:14 | DS ---
Physical Examination Vital Signs: Vital Signs Temperature 98.3 F 03/16/19 04:00 Pulse Rate 89 03/16/19 04:00 Respiratory Rate 21 H 03/16/19 04:00 Blood Pressure 105/67 03/16/19 04:00 O2 Sat by Pulse Oximetry (%) 99 03/15/19 20:23 Constitutional: Yes: No Distress, Anxious Eyes: Yes: Conjunctiva Clear, EOM Intact HENT: Yes: Atraumatic, Normocephalic Neck: Yes: Supple, Trachea Midline Cardiovascular: Yes: Pulse Irregular (APC) Respiratory: Yes: Regular, CTA Bilaterally Gastrointestinal: Yes: Normal Bowel Sounds, Soft. No: Abdomen, Obese ...Rectal Exam: Yes: Deferred Renal/: No: Anuria, Bladder Distention Breast(s): Yes: WNL Musculoskeletal: No: Back Pain Extremities: No: Cold, Cyanosis Edema: No Peripheral Pulses WNL: No (Doppler +) Wound/Incision: Yes: Katt Intact, Dressing Dry and Intact Neurological: Yes: Alert, Oriented, Cran Nerves II-XII Intact. No: Aphasia, Dysarthria ...Motor Strength: WNL Psychiatric: Yes: WNL Labs: CBC, BMP 03/14/19 05:30 03/13/19 05:25 Discharge Summary Reason For Visit: FEMORAL ARTERY OCCLUSION Current Active Problems Atherosclerosis of lower extremity with rest pain (Acute) Atrial fib/flutter, transient (Acute) COPD (chronic obstructive pulmonary disease) (Acute) HTN (hypertension) (Acute) Procedures: Principal: LEFT FEM-TIB BYPASS Other Procedures: TELEMETRY FOR A.FIB. Condition: Fair - Instructions Diet, Activity, Other Instructions: Post-operative Instructions Wound: When showering allow soap and water to run over the incision, do not scrub the incision, pat dry well after showering. Check the incision daily after removal of the dressing for redness or drainage. If you note any redness or drainage, contact your surgeon immediately. Do not swim or soak in water (bath/ hot tub, etc) until cleared by your surgeon as this can lead to infection. Do not put creams or ointments on the wound until cleared by your surgeon. Diet: You may resume your regular diet unless otherwise instructed by your physician. Increase your fiber intake if taking narcotic pain medications as constipation is a common side effect. Pain Relief: Take pain medication as prescribed. Do not drive, drink alcohol or operate heavy machinery while taking narcotic pain medications. You have been prescribed aspirin and plavix. Take this medication everyday. Do not skip any doses. Contact your surgeon if you have any issues tolerating the medication. Do not stop taking this medication without speaking to your surgeon first. These medications help to prevent clots in your arteries. Activity: No heavy lifting (greater than 5 pounds), no strenuous activity until cleared by your surgeon. The best exercise is walking. Small amounts done frequently are best. It is best to stay mobile to avoid development of blood clots in your legs. Follow-up Please call the office to schedule your follow up appointment in 2 weeks. Call your doctors office or go to the ER immediately if you develop: Trouble breathing, chest tightness or shortness of breath Oral temperature greater than 100.5 F Excessive redness, swelling, or drainage at the incision site. Foul odor from the incision. New, increasing pain/numbness/weakness or coolness in your leg. Disposition: HOME - Home Medications Comprehensive Discharge Medication List: Ambulatory Orders Multivitamin [Multiple Vitamins] 1 each PO DAILY 03/09/19 Varenicline Tartrate [Chantix] 1 mg PO DAILY 03/09/19 traZODone HCL [Trazodone HCl] 100 mg PO HS 03/09/19
[2019-03-16] MEDS ORDERED: PT OWN MED DRAWER 7, Y5N ONE (09:29)
[2019-03-16] MEDS ORDERED: dilTIAZem HCL 125 MG/25 ML - 25 ML VIAL ONE (09:33)
[2019-03-16] MEDS: VARENICLINE TARTRATE 1 MG TAB PO SCH (09:37)
[2019-03-16] MEDS: ASPIRIN 81 MG CHEWABLE TABLETS PO SCH (09:37)
[2019-03-16] MEDS: APIXABAN 5 MG TABLET PO SCH ×2 (09:37→21:03)
[2019-03-16] MEDS: VITAMIN B COMPLEX W/C COMBO TABLET (FP) PO SCH (09:37)
[2019-03-16] MEDS ORDERED: dilTIAZem HCL 50 MG/10 ML - 10 ML VIAL IVPUSH ONE (09:46)
--- NOTE | 2019-03-16 09:47 | PN ---
Progress Note, Physician Chief Complaint: was in sinus at 98 Sat up to allow for exam and went into RAYNA 150s, asx - Current Medication List Current Medications: Active Medications Acetaminophen (Tylenol -) 650 mg PO Q6H PRN PRN Reason: PAIN LEVEL 1 - 3 Albuterol Sulfate (Ventolin 0.5% -) 1 amp NEB Q4H PRN PRN Reason: SHORT OF BREATH/WHEEZING Apixaban (Eliquis -) 5 mg PO BID [facility] Last Admin: 03/16/19 09:37 Dose: 5 mg Aspirin (Asa -) 81 mg PO DAILY [facility] Last Admin: 03/16/19 09:37 Dose: 81 mg Diltiazem HCl (Cardizem -) 30 mg PO Q6HPO [facility] Last Admin: 03/16/19 05:23 Dose: 30 mg Diltiazem HCl 125 mg/ Dextrose 125 mls @ 5 mls/hr IVPB TITR [facility]; Protocol Last Titration: 03/14/19 23:49 Dose: 0 mg/hr, 0 mls/hr Multivitamins (Total B With C -) 1 each PO DAILY [facility] Last Admin: 03/16/19 09:37 Dose: 1 each Ondansetron HCl (Zofran Injection) 4 mg IVPUSH Q6H PRN PRN Reason: NAUSEA AND/OR VOMITING Oxycodone HCl (Roxicodone -) 5 mg PO Q4H PRN PRN Reason: PAIN LEVEL 1-5 Last Admin: 03/15/19 23:57 Dose: 5 mg Oxycodone HCl (Roxicodone -) 10 mg PO Q4H PRN PRN Reason: PAIN LEVEL 6-10 Promethazine HCl (Phenergan Injection -) 12.5 mg IVPUSH Q6H PRN PRN Reason: NAUSEA-FOR RESCUE AFTER 15 MIN Trazodone HCl (Desyrel -) 100 mg PO HS [facility] Last Admin: 03/15/19 23:57 Dose: 100 mg Varenicline (Chantix -) 1 mg PO DAILY [facility] Last Admin: 03/16/19 09:37 Dose: 1 mg - Objective Vital Signs: Vital Signs Temperature 98.3 F 03/16/19 04:00 Pulse Rate 95 H 03/16/19 08:00 Respiratory Rate 23 H 03/16/19 08:00 Blood Pressure 128/68 03/16/19 08:00 O2 Sat by Pulse Oximetry (%) 99 03/15/19 20:23 Constitutional: Yes: No Distress Cardiovascular: Yes: Tachycardia, Pulse Irregular Respiratory: Yes: CTA Bilaterally Gastrointestinal: Yes: Soft Edema: No Neurological: Yes: Alert, Oriented Labs: CBC, BMP 03/14/19 05:30 03/13/19 05:25 Assessment/Plan Assessment/Plan EKG: afib with RVR, RBBB, 140 bpm tele:afib, rate ok, sr echo 02/2019: nl lv, rv tds, no sig valve path, nl rvsp atrial fibrillation with RVR - echo unremarkable - dilt gtt stopped, now on po dilt,episode RVR again this AM required IV Cardizem. Switch to Cardizem CD - [id number] warrants AC - POD2 from L fem to ant tibial bypass; now on NOAC PAD s/p bypass - manage per vascular, on dapt HTN - monitor BP on current meds COPD - manage per primary
[2019-03-16] MEDS: traZODone HCL 50 MG TABLET (FP) PO SCH (21:03)
[2019-03-17] MEDS ORDERED: PT OWN MED DRAWER 7, Y5N ONE (09:41)
[2019-03-17] MEDS: VARENICLINE TARTRATE 1 MG TAB PO SCH (09:45)
[2019-03-17] MEDS: APIXABAN 5 MG TABLET PO SCH (09:45)
[2019-03-17] MEDS: ASPIRIN 81 MG CHEWABLE TABLETS PO SCH (09:45)
[2019-03-17] MEDS: VITAMIN B COMPLEX W/C COMBO TABLET (FP) PO SCH (09:45)
--- NOTE | 2019-03-17 11:50 | PN ---
Progress Note (short form) - Note Progress Note: No c/o Episode of tachycardia treated with Cardiazem Leg wounds healing well Foot warm pulse intact Labs reviewed OK for discharge from surgical POV. I will see in 1 week in my office. Problem List - Problems (1) Atherosclerosis of lower extremity with rest pain Code(s): I70.229 - ATHSCL [place] ARTERIES OF EXTRM W REST PAIN, UNSP EXTREMITY Qualifiers: Peripheral atherosclerosis artery type: [place] artery Laterality: bilateral Qualified Code(s): I70.223 - Atherosclerosis of [place] arteries of extremities with rest pain, bilateral legs
--- NOTE | 2019-03-17 11:54 | PN ---
Progress Note (short form) - Note Progress Note: s: no chest pain, palps, dizziness, dyspnea Current Medications Acetaminophen (Tylenol -) 650 mg PO Q6H PRN PRN Reason: PAIN LEVEL 1 - 3 Albuterol Sulfate (Ventolin 0.5% -) 1 amp NEB Q4H PRN PRN Reason: SHORT OF BREATH/WHEEZING Apixaban (Eliquis -) 5 mg PO BID [facility] Last Admin: 03/17/19 09:45 Dose: 5 mg Aspirin (Asa -) 81 mg PO DAILY [facility] Last Admin: 03/17/19 09:45 Dose: 81 mg Diltiazem HCl (Cardizem Cd -) 120 mg PO DAILY [facility] Last Admin: 03/17/19 09:45 Dose: 120 mg Multivitamins (Total B With C -) 1 each PO DAILY [facility] Last Admin: 03/17/19 09:45 Dose: 1 each Ondansetron HCl (Zofran Injection) 4 mg IVPUSH Q6H PRN PRN Reason: NAUSEA AND/OR VOMITING Oxycodone HCl (Roxicodone -) 5 mg PO Q4H PRN PRN Reason: PAIN LEVEL 1-5 Last Admin: 03/15/19 23:57 Dose: 5 mg Oxycodone HCl (Roxicodone -) 10 mg PO Q4H PRN PRN Reason: PAIN LEVEL 6-10 Last Admin: 03/16/19 23:30 Dose: 10 mg Promethazine HCl (Phenergan Injection -) 12.5 mg IVPUSH Q6H PRN PRN Reason: NAUSEA-FOR RESCUE AFTER 15 MIN Trazodone HCl (Desyrel -) 100 mg PO [facility] Last Admin: 03/16/19 21:03 Dose: 100 mg Varenicline (Chantix -) 1 mg PO DAILY [facility] Last Admin: 03/17/19 09:45 Dose: 1 mg Vital Signs Period Temp Pulse Resp BP Sys/Faulkner Pulse Ox Last 24 Hr 98.2 F-98.6 F 86-97 13-25 100-138/59-72 99 Constitutional: Yes: No Distress Cardiovascular: Yes: Tachycardia, Pulse Irregular Respiratory: Yes: CTA Bilaterally Gastrointestinal: Yes: Soft Edema: No Neurological: Yes: Alert, Oriented no jaundice, diaphoresis not agitated Assessment/Plan EKG: afib with RVR, RBBB, 140 bpm tele:afib, rate ok, sr echo 02/2019: nl lv, rv tds, no sig valve path, nl rvsp atrial fibrillation with RVR - echo unremarkable - discharge held yesterday for episode of RVR, now improved. in sinus, on cardizem CD, continue - [id number] warrants AC - POD2 from L fem to ant tibial bypass; now on NOAC PAD s/p bypass - manage per vascular, on dapt HTN - monitor BP on current meds COPD - manage per primary stable for dc from cardiac perspective
--- NOTE | 2019-03-17 12:30 | PN ---
Physical Exam: SUBJECTIVE: Patient seen and examined at the bedside. feels well and in no acute distress. OBJECTIVE: for discharge home today. highly recommend that patient have a VNS nurse if allowed by his insurance to check his blood pressure and continue teaching on importance of medication compliance. discharge home today 03/17/19, cleared by cardiology Vital Signs Period Temp Pulse Resp BP Sys/Faulkner Pulse Ox Last 24 Hr 98.2 F-98.6 F 86-97 16-25 100-138/59-72 99 GENERAL: The patient is awake, alert, and fully oriented, in no acute distress. HEAD: Normal with no signs of trauma. EYES: PERRL, extraocular movements intact, sclera anicteric, conjunctiva clear. No ptosis. ENT: Ears normal, nares patent, oropharynx clear without exudates, moist mucous membranes. NECK: Trachea midline, full range of motion, supple. LUNGS: diminished breath sounds on the HEART: Regular rate and rhythm, S1, S2 without murmur, rub or gallop. ABDOMEN: Soft, nontender, nondistended, normoactive bowel sounds, no guarding, no rebound, no hepatosplenomegaly, no masses. EXTREMITIES: 2+ pulses, warm, well-perfused, no edema. NEUROLOGICAL:Normal speech, gait not observed. PSYCH: Normal mood, normal affect. SKIN: Warm, dry, normal turgor, no rashes or lesions noted Active Medications Generic Name Dose Route Start Last Admin Trade Name Freq PRN Reason Stop Dose Admin Acetaminophen 650 mg 03/15/19 12:10 Tylenol - PO Q6H PRN PAIN LEVEL 1 - 3 Albuterol Sulfate 1 amp 03/15/19 12:10 Ventolin 0.5% - NEB Q4H PRN SHORT OF BREATH/WHEEZING Apixaban 5 mg 03/15/19 10:00 03/17/19 09:45 Eliquis - PO 5 mg BID MIKE Administration Aspirin 81 mg 03/16/19 10:00 03/17/19 09:45 Asa - PO 81 mg DAILY MIKE Administration Diltiazem HCl 120 mg 03/17/19 10:00 03/17/19 09:45 Cardizem Cd - PO 120 mg DAILY MIKE Administration Multivitamins 1 each 03/16/19 10:00 03/17/19 09:45 Total B With C - PO 1 each DAILY MIKE Administration Ondansetron HCl 4 mg 03/15/19 12:10 Zofran Injection IVPUSH Q6H PRN NAUSEA AND/OR VOMITING Oxycodone HCl 5 mg 03/15/19 12:10 03/15/19 23:57 Roxicodone - PO 5 mg Q4H PRN Administration PAIN LEVEL 1-5 Oxycodone HCl 10 mg 03/15/19 12:10 03/16/19 23:30 Roxicodone - PO 10 mg Q4H PRN Administration PAIN LEVEL 6-10 Promethazine HCl 12.5 mg 03/15/19 12:10 Phenergan Injection - IVPUSH Q6H PRN NAUSEA-FOR RESCUE AFTER 15 MIN Trazodone HCl 100 mg 03/15/19 22:00 03/16/19 21:03 Desyrel - PO 100 mg HS MIKE Administration Varenicline 1 mg 03/16/19 10:00 03/17/19 09:45 Chantix - PO 1 mg DAILY MIKE Administration ASSESSMENT/PLAN: Problem List - Problems (1) Atherosclerosis of lower extremity with rest pain Assessment/Plan: care per dr. márquez. follow up in 1 week Code(s): I70.229 - ATHSCL [place] ARTERIES OF EXTRM W REST PAIN, UNSP EXTREMITY Qualifiers: Peripheral atherosclerosis artery type: [place] artery Laterality: bilateral Qualified Code(s): I70.223 - Atherosclerosis of [place] arteries of extremities with rest pain, bilateral legs (2) Atrial fib/flutter, transient Assessment/Plan: on cardizem for rate control Code(s): [id number] - (3) COPD (chronic obstructive pulmonary disease) Assessment/Plan: tolerating room air. on chantix for tobacco cessation. Code(s): J44.9 - CHRONIC OBSTRUCTIVE PULMONARY DISEASE, UNSPECIFIED Qualifiers: COPD type: emphysema (4) HTN (hypertension) Assessment/Plan: controlled. now with a new medication cardizem 120mg cd. request a visiting nurse and patient's mobililty status is compromised and he is on a new medication monitor bp outpatient Code(s): I10 - ESSENTIAL (PRIMARY) HYPERTENSION Qualifiers: Hypertension type: essential hypertension Qualified Code(s): I10 - Essential (primary) hypertension Visit type - Emergency Visit Emergency Visit: Yes ED Registration Date: 03/12/19 Care time: The patient presented to the Emergency Department on the above date and was hospitalized for further evaluation of their emergent condition. - New Patient This patient is new to me today: Yes Date on this admission: 03/17/19 - Critical Care Critical Care patient: No - Discharge Referral Referred to [facility] No
[2019-03-17 12:49] VITALS: BP 117/68; PULSE 98; TEMP 98.4
== END 2019-03-17 15:10 | disposition home or self-care (01) | DRG 253 ==
LOC: JSAMEDAYSX 07:07 → JICU 17:44 → J2W 03-13 21:35
PROVIDERS: ADMIT Surgery; ATTEND Nurse Practitioner Family
PROC: 061 Lower Veins, Bypass (ICD-10-PCS; 2019-03-12)
PROC: 04CL0ZZ Extirpation of Matter from Left Femoral Artery, Open Approach (ICD-10-PCS; principal; 2019-03-12 10:00)
PROC: 04UL0JZ Supplement Left Femoral Artery with Synthetic Substitute, Open Approach (ICD-10-PCS; 2019-03-12 10:00)
DX: I70.222 Atherosclerosis of native arteries of extremities with rest pain, left leg (principal); I48.92 Unspecified atrial flutter; I70.223 Atherosclerosis of native arteries of extremities with rest pain, bilateral legs; M51.27 Other intervertebral disc displacement, lumbosacral region; M79.662 Pain in left lower leg; M79.661 Pain in right lower leg; J44.9 Chronic obstructive pulmonary disease, unspecified; I45.10 Unspecified right bundle-branch block; G47.00 Insomnia, unspecified; M54.30 Sciatica, unspecified side; I10 Essential (primary) hypertension; I48.91 Unspecified atrial fibrillation; R00.0 Tachycardia, unspecified; I77.1 Stricture of artery
CPT/HCPCS: 36415; 76000-TC-FY; 80048; 83735; 84100; 85025; 86850; 86900; 86901; 88304-TC; 93005; 93010; 93306-TC; 94760; 97116-GP; 97162-GP; J1644

== ENCOUNTER 2019-07-18 14:03 | Inpatient (IN) | payer OTHER, BC ==
[2019-07-18] MEDS ORDERED: ALBUTEROL SO4 2.5/IPRATROPIUM 0.5 INH SOL 3 ML VIAL.NEB. NEB ONE (14:25)
--- NOTE | 2019-07-18 14:25 | PDOC ---
Rapid Medical Evaluation Time Seen by Provider: 07/18/19 14:19 Medical Evaluation: Allergies Allergy/AdvReac Type Severity Reaction Status Date / Time No Known Allergies Allergy Verified 07/18/19 14:19 07/18/19 14:19 Pt presents to the ER for pneumonia as diagnosed by Dr. Brantley and would like the patient admitted. No hospital stay within the last 90 days. Exam: Lungs with decreased breath sounds b/l, scattered rales. O2 Sat 91 Orders: labs, CXR, EKG Pt to proceed to the ER for further evaluation Discharge Disposition - Diagnosis Shortness of breath - Referrals - Patient Instructions - Post Discharge Activity
[2019-07-18 14:26] VITALS: BMI 24.7
--- NOTE | 2019-07-18 15:12 | PDOC ---
Documentation entered by Elisha Caldwell SCRIBE, acting as scribe for Sommer Kat MD. Sommer Kat MD: This documentation has been prepared by the Paulette ibarra Adrianna, SCRIBE, under my direction and personally reviewed by me in its entirety. I confirm that the documentation accurately reflects all work, treatment, procedures, and medical decision making performed by me. Attending Attestation - Resident Resident Name: Yuliana Cade - ED Attending Attestation I have performed the following: I have examined & evaluated the patient, The case was reviewed & discussed with the resident, I agree w/resident's findings & plan, Exceptions are as noted - HPI HPI: The patient is a 68 year old male, with a significant PMH of COPD, HTN, and PAS , who presents to the ED for evaluation of shortness of breath and cough for 2 days. Patient complains of sudden onset SOB, with a cough productive of white sputum and wheezing. He endorses loss of appetite and runny nose. Patient was seen by his PCP this morning, and was found to have decreased breath sounds bilaterally, rales, and a decreased 02 sat (typically 98, but now at 91-92). He was advised to come to the ED for admission for pneumonia. Allergies: NKA, NKDA Surgical History: Abdominal hernia repair Social History: Former smoker (quit 3 months ago). Denies EtOH or illicit drug use PCP: Dr. Brantley - Physicial Exam PE: 07/18/19 16:43 GENERAL: The patient is in no acute distress. ENT: Ears normal, nares patent, oropharynx clear without exudates. Moist mucous membranes. NECK: Normal range of motion, supple LUNGS: Coarse, rhonchorous breath sounds bilaterally, no wheezing noted HEART:Regular rate and rhythm, normal S1 and S2 without murmur, rub or gallop. ABDOMEN: Soft, nontender, normoactive bowel sounds. EXTREMITIES: Normal range of motion, no edema. NEUROLOGICAL: Cranial nerves II through XII grossly intact. Normal speech. No focal neurological deficits. SKIN: Warm, Dry, normal turgor, no rashes or lesions noted. - Medical Decision Making 07/18/19 16:45 68-year-old male presenting to the emergency department with cough. Patient states this began as she has a head cold more than 1 week ago. His cough is worsened and is now productive of thick sputum. No known fevers or chills. Patient has some shortness of breath. Denies chest pain Patient seen by primary care physician who recommended admission Dr. Brantley has seen him in the emergency department 07/18/19 16:46 Laboratory Tests 07/18/19 07/18/19 14:58 14:58 WBC 18.4 H Hgb 14.6 Hct 42.9 D Plt Count 412 D BUN 8.8 Creatinine 0.6 Chest x-ray: Left upper lobe infiltrate noted We will admit to telemetry. We will admit to Dr. Marroquin Clinical impression: Pneumonia, initial presentation COPD exacerbation, initial presentation Discharge - Discharge Information Problems reviewed: Yes Clinical Impression/Diagnosis: Shortness of breath Condition: Stable - Admission Yes - Follow up/Referral - Patient Discharge Instructions - Post Discharge Activity
[2019-07-18] MEDS ORDERED: AZITHROMYCIN IVPB 500 MG in DEXTROSE 5%-WATER - 250 ML IVPB ONE (15:19)
[2019-07-18] MEDS ORDERED: methylPREDNISolone NA SUCC 125 MG/2 ML VIAL IVPUSH ONE (15:19)
[2019-07-18] MEDS ORDERED: methylPREDNISolone NA SUCC 125 MG/2 ML VIAL ONE (15:22)
[2019-07-18] MEDS ORDERED: CEFTRIAXONE 1 GM/50 ML BAG ONE (15:23)
[2019-07-18] MEDS ORDERED: AZITHROMYCIN IVPB 500 MG/250 ML BAG IVPB ONE (15:23)
--- NOTE | 2019-07-18 15:26 | PDOC ---
History of Present Illness - General Chief Complaint: Shortness of Breath Stated Complaint: SENT BY PCP Time Seen by Provider: 07/18/19 14:19 - History of Present Illness Initial Comments: 07/18/19 15:20 Mr. Carolina is a 68y/o male with COPD (not on tx), HTN, and PAD who presents with 2 days of sudden onset shortness of breath, productive cough with whitish sputum, and wheezing. He also reports loss of appetite and initial runny nose. He denies fever, chills, myalgias, orthopnea, and pleuritic chest pain. He received his flu shot this season. He is a former 1/2ppd smoker x50 years and mostly quit in February. He sometimes has a cigarette since then. He presented to his PCP today and was told to present to the ED for admission for PNA. Past History - Past Medical History Allergies/Adverse Reactions: Allergies Allergy/AdvReac Type Severity Reaction Status Date / Time No Known Allergies Allergy Verified 07/18/19 15:38 Home Medications: Ambulatory Orders Multivitamin [Multiple Vitamins] 1 each PO DAILY 03/09/19 Varenicline Tartrate [Chantix -] 1 mg PO DAILY 03/09/19 traZODone HCL [Trazodone HCl] 100 mg PO HS 03/09/19 Apixaban [Eliquis -] 5 mg PO BID #60 tablet 03/16/19 Aspirin [ASA -] 81 mg PO DAILY tab.chew 03/16/19 Docusate Sodium [Colace -] 100 mg PO BID PRN #14 capsule 03/16/19 Oxycodone HCl/Acetaminophen [Percocet 5-325 mg Tablet] 1 - 2 tab PO Q6H PRN #30 tab MDD 8 03/16/19 Diltiazem Cd [Cardizem Cd -] 120 mg PO DAILY #60 cap.cd.24h 03/17/19 Walker [Ultra-Light Rollator] 1 each MC DAILY #1 each 03/17/19 Anemia: No Asthma: No Cancer: No Cardiac Disorders: No CVA: No COPD: No CHF: No Dementia: No Diabetes: No GI Disorders: No Disorders: No HTN: Yes (borderline) Hypercholesterolemia: No Liver Disease: No Seizures: Yes (20 yrs ago) Thyroid Disease: No - Surgical History Abdominal Surgery: (hernia) - Psycho Social/Smoking Cessation Hx Smoking History: Former smoker Have you smoked in the past 12 months: Yes Number of Cigarettes Smoked Daily: 10 If you are a former smoker, when did you quit?: 03/2019 Information on smoking cessation initiated: No 'Breaking Loose' booklet given: 03/12/19 Hx Alcohol Use: No Drug/Substance Use Hx: No Substance Use Type: None Hx Substance Use Treatment: No Review of Systems - Review of Systems Constitutional: Yes: Loss of Appetite. No: Chills, Fever Respiratory: Yes: Cough, Shortness of Breath, Wheezing ABD/GI: No: Nausea, Vomiting *Physical Exam - Vital Signs Last Vital Signs Temp Pulse Resp BP Pulse Ox 98.2 F 95 H 20 127/68 93 L 07/18/19 14:21 07/18/19 14:21 07/18/19 14:21 07/18/19 14:21 07/18/19 14:21 - Physical Exam General Appearance: Yes: Nourished, Appropriately Dressed. No: Apparent Distress HEENT: positive: EOMI, NOEMI, Normal Voice Neck: positive: Trachea midline Respiratory/Chest: positive: Decreased Breath Sounds, Rhonchi (b/l diffuse). negative: Accessory Muscle Use Cardiovascular: positive: Regular Rhythm, Regular Rate Gastrointestinal/Abdominal: positive: Normal Bowel Sounds. negative: Tender Integumentary: negative: Cyanotic Neurologic: positive: Fully Oriented, Alert, Normal Mood/Affect ED Treatment Course - LABORATORY CBC & Chemistry Diagram: 07/18/19 14:58 07/18/19 14:58 - Medications Given in the ED: ED Medications Discontinued Medications Generic Name Dose Route Start Last Admin Trade Name Rosa Isela PRN Reason Stop Dose Admin Albuterol/Ipratropium 1 amp 07/18/19 14:25 07/18/19 15:07 Duoneb - NEB 07/18/19 14:26 1 amp ONCE ONE Administration Medical Decision Making - Medical Decision Making 07/18/19 15:28 Mr. Carolina is a 68y/o male with COPD (not on tx), HTN, and PAD who presents with 2 days of sudden onset shortness of breath, productive cough with whitish sputum, and wheezing. He was sent in by Dr. Brantley after being seen in the office. O2 93% on RA and rhonchi present. differential: PNA, COPD exacerbation, CHF, r/o sepsis orders: EKG, CXR, CBC, CMP, troponin, lactic acid, PT/PTT, urine and blood cx, solu-medrol 125mg, azithromycin 500mg, duo-nebs EKG NSR, no acute ST changes, QTc [address] Brantley 07/18/19 16:32 WBC 18.4 CXR left upper lobe infiltrate 07/18/19 18:36 Pt resting comfortably in bed. Waiting for room upstairs. Discharge - Discharge Information Problems reviewed: Yes Clinical Impression/Diagnosis: Shortness of breath Condition: Stable - Admission Yes - Follow up/Referral - Patient Discharge Instructions - Post Discharge Activity
--- NOTE | 2019-07-18 15:35 | HP ---
Admitting History and Physical - Admission Chief Complaint: 68 y.o M with history of COPD, Ex SMOKER presented to the office with respiratory distress, dyspnea, productive cough with sputum x 3 days. Normally O2SAT RA 98% now was 90% . Rales and rhonchi on the chest exam. The patient was sent to [facility] for further management. History of Present Illness: Alcohol use disorder- abstained since last hospitalization to [facility] Smoker now-attempting toquit. Paroxysmal A.Fib on Eliquis. PAD. LEFT Femoral-tibial bypass by Dr Dillon in 2019. LEFT LS RADICULOPATHY. Disc herniation. Spinal stenosis. Depression. Insomnia. HTN. History Source: Patient, Medical Record Limitations to Obtaining History: No Limitations - Past Medical History [employer]: No: Alzheimer's, CVA, Dementia, Migraine, Multiple Sclerosis, Peripheral Neuropathy, Parkinson's, Seizure, Syncope, TIA, Vertigo, Other Cardiovascular: Yes: AFIB, HTN, Hyperlipdemia Pulmonary: Yes: COPD. No: O2 Dependent Gastrointestinal: No: Ascites, Cancer, Constipation, Crohn's Disease, Diverticulitis, Diverticulosis, Esophageal Varices, Gastritis, GERD, GI Bleed, Hemorrhoids, Hiatal Hernia, Inflamatory Bowel Disease, Irritable Bowel Disease, Pancreatitis, Peptic Ulcer Disease, Ulcerative Colitis, Other Hepatobiliary: No: Cirrhosis, Cholelithiasis, Cholecystitis, Choledocholithiasis , Hepatitis A, Hepatitis B, Hepatitis C, Other Renal/: No: Renal Failure, Renal Inusuff, BPH, Cancer, Hematuria, Hemodialysis , Neurogenic Bladder, Renal Calculi, UTI, Other Heme/Onc: No: Anemia, B12 Deficiency, Bleeding Disorder, Cancer, Current Chemotherapy, Current Radiation Therapy, Hemochromatosis, Hypercoaguable State, Myeloproliferative Synd, Sickle Cell Disease, Sickle Cell Trait, Thrombocytopenia, Other Infectious Disease: No: AIDS, C-Diff, Herpes Zoster, HIV, MRSA, STD's, Tuberculosis, VREF, Other Psych: Yes: Depression. No: Addictions, Anxiety, Bipolar, Panic, Psychosis, Schizophrenia, Other Musculoskeletal: Yes: Other (LS radiculopathy). No: Bursitis, Chronic low back pain, Hemiparesis, Hemiplegia, Osteoarthritis, Paraplegia Rheumatology: No: Fibromyalgia, Gout, Lupus, Rheumatoid Arthritis, Sarcoidosis, Vasculitis, Other ENT: No: Allergic Rhinitis, Sinusitis, Other Endocrine: No: Ardara's Disease, Howe's Disease, Diabetes Insipidus, Diabetes Mellitus, Hyperparathyroidism, Hyperthyroidism, Hypothyroidism, Osteopenia, SIADH, Other - Smoking History Smoking history: Former smoker Have you smoked in the past 12 months: Yes Aproximately how many cigarettes per day: 10 If you are a former smoker, when did you quit?: 03/2019 - Alcohol/Substance Use Hx Alcohol Use: No Home Medications - Allergies Allergies/Adverse Reactions: Allergies Allergy/AdvReac Type Severity Reaction Status Date / Time No Known Allergies Allergy Verified 07/18/19 15:38 - Home Medications Home Medications: Ambulatory Orders Multivitamin [Multiple Vitamins] 1 each PO DAILY 03/09/19 Varenicline Tartrate [Chantix -] 1 mg PO DAILY 03/09/19 traZODone HCL [Trazodone HCl] 100 mg PO HS 03/09/19 Apixaban [Eliquis -] 5 mg PO BID #60 tablet 03/16/19 Aspirin [ASA -] 81 mg PO DAILY tab.chew 03/16/19 Docusate Sodium [Colace -] 100 mg PO BID PRN #14 capsule 03/16/19 Oxycodone HCl/Acetaminophen [Percocet 5-325 mg Tablet] 1 - 2 tab PO Q6H PRN #30 tab MDD 8 03/16/19 Diltiazem Cd [Cardizem Cd -] 120 mg PO DAILY #60 cap.cd.24h 03/17/19 Walker [Ultra-Light Rollator] 1 each MC DAILY #1 each 03/17/19 Family Medical History Family History: Unremarkable Review of Systems - Review of Systems Constitutional: reports: Weakness. denies: Chills, Fever, Lethargy Eyes: reports: No Symptoms HENT: reports: No Symptoms Neck: reports: No Symptoms Cardiovascular: reports: Shortness of Breath. denies: Chest Pain, Edema Respiratory: reports: Cough, Exercise Intolerance, SOB, SOB on Exertion. denies : Orthopnea, Wheezing Gastrointestinal: reports: No Symptoms Breasts: reports: No Symptoms Reported Musculoskeletal: reports: No Symptoms Integumentary: reports: No Symptoms Neurological: reports: No Symptoms Endocrine: reports: No Symptoms Hematology/Lymphatic: reports: No Symptoms Psychiatric: reports: No Symptoms Physical Examination Vital Signs: Vital Signs Temperature 98.2 F 07/18/19 14:21 Pulse Rate 95 H 07/18/19 14:21 Respiratory Rate 07/18/19 14:21 Blood Pressure 127/68 07/18/19 14:21 O2 Sat by Pulse Oximetry (%) 93 L 07/18/19 14:21 Constitutional: Yes: Anxious, Moderate Distress. No: Obese Eyes: Yes: Conjunctiva Clear, EOM Intact HENT: Yes: Atraumatic, Normocephalic, Pharyngeal Erythema. No: Drooling Neck: Yes: Supple, Trachea Midline. No: Decreased ROM, Lymphadenopathy Cardiovascular: Yes: Regular Rate and Rhythm, S1, S2. No: Bradycardia, Tachycardia, JVD Respiratory: Yes: Diminished (Left hemithorax), On Venti-Mask, Rales (Right hemithorax), Rhonchi, SOB, SOB on Exertion Gastrointestinal: Yes: Normal Bowel Sounds, Soft. No: Abdomen, Obese ...Rectal Exam: Yes: Deferred Renal/: No: Anuria, Bladder Distention, CVA Tenderness - Left, CVA Tenderness - Right Breast(s): Yes: WNL Musculoskeletal: Yes: WNL Extremities: Yes: Deformity. No: Amputation, Calf Tenderness, Cold Peripheral Pulses WNL: No Integumentary: Yes: WNL Neurological: Yes: Alert, Oriented. No: Aphasia, Asterixis, Ataxia, Babinski positive, Dysarthria, Facial Droop, Lethargy, Seizure ...Motor Strength: WNL Psychiatric: Yes: WNL Imaging - Results Chest X-ray: Pending Problem List - Problems (1) Shortness of breath Assessment/Plan: R/O PNA, Bacterial, superimposed on Viral? Ceftriaxone IVPB daily. O2 NC Pulm consult Code(s): R06.02 - SHORTNESS OF BREATH (2) Atrial fib/flutter, transient Assessment/Plan: Continue Eliquis Cardizem 360 mg QD Problems reviewed: Yes Code(s): BZZ3624 - (3) COPD (chronic obstructive pulmonary disease) Assessment/Plan: IV steroids Duonebs BID Code(s): J44.9 - CHRONIC OBSTRUCTIVE PULMONARY DISEASE, UNSPECIFIED Qualifiers: COPD type: emphysema (4) HTN (hypertension) Assessment/Plan: Cardizem CD 360 QD Losartan 25 mg QD Code(s): I10 - ESSENTIAL (PRIMARY) HYPERTENSION Qualifiers: Hypertension type: essential hypertension Qualified Code(s): I10 - Essential (primary) hypertension
[2019-07-18 15:40] LABS: BASO % 0.3 % (0-2.0); EOS % 0.1 % (0-4.5); HEMATOCRIT 42.9 % (35.4-49); HEMOGLOBIN 14.6 GM/dL (11.7-16.9); LYMPH % 9.7 % (8-40); MCH 30.5 pg (25.7-33.7); MCHC 33.9 g/dl (32.0-35.9); MEAN CELL VOLUME 89.8 fl (80-96); MEAN PLT VOLUME 6.7 fl (7.5-11.1); MONO % 8.3 % (3.8-10.2); NEUT % 81.6 % (42.8-82.8); PLATELET COUNT 412 K/MM3 (134-434); RBC 4.78 M/mm3 (4.00-5.60); RDW 13.5 % (11.9-15.9); WHITE BLOOD COUNT 18.4 K/mm3 (4.0-10.0)
[2019-07-18] MEDS: ALBUTEROL SO4 2.5/IPRATROPIUM 0.5 INH SOL 3 ML VIAL.NEB. NEB SCH ×2 (16:05→21:30)
[2019-07-18 16:12] LABS: ALBUMIN 3.6 g/dl (3.4-5.0); BILIRUBIN,TOTAL 0.5 mg/dL (0.2-1); BLOOD UREA NITROGEN 8.8 mg/dL (7-18); CALCIUM 9.1 mg/dL (8.5-10.1); CREATININE 0.6 mg/dL (0.55-1.3); POTASSIUM 4.1 mmol/L (3.5-5.1); TOT PROT 7.4 g/dl (6.4-8.2)
[2019-07-18 17:02] LABS: EPI CELLS 1.6 /HPF (0-5/HPF); HYALINE CASTS 14 /lpf (0-8); PH,URINE 5.5 (5.0-8.0); URINE APPEARANCE CLEAR; URINE BACTERIA 11.5 /hpf (NEGATIVE); URINE BILIRUBIN NEGATIVE (NEGATIVE); URINE COLOR DK YELLOW; URINE GLUCOSE (UA) NEGATIVE (NEGATIVE); URINE KETONE 1+ (NEGATIVE); URINE LEUK ESTERASE NEGATIVE (NEGATIVE); URINE NITRITE NEGATIVE (NEGATIVE); URINE PROTEIN 1+ (NEGATIVE); URINE RBC 5 /hpf (0-4); URINE UROBILINOGEN 0.2 mg/dL (0.2-1.0); URINE WBC 1 /hpf (0-5)
[2019-07-18] MEDS: APIXABAN 5 MG TABLET PO SCH (22:51)
[2019-07-18] MEDS: POLYETHYLENE GLYCOL 3350 119 GM BTL PO SCH (22:51)
[2019-07-18] MEDS ORDERED: guaiFENesin 200 MG/10 ML 10 ML UNIT-DOSE CUPS PO PRN (22:56)
[2019-07-18] MEDS: traZODone HCL 50 MG TABLET (FP) PO SCH (23:33)
[2019-07-19 07:48] LABS: BASO % 0.2 % (0-2.0); HEMATOCRIT 41.7 % (35.4-49); HEMOGLOBIN 14.3 GM/dL (11.7-16.9); LYMPH % 5.3 % (8-40); MCH 30.5 pg (25.7-33.7); MCHC 34.2 g/dl (32.0-35.9); MEAN CELL VOLUME 89.2 fl (80-96); MEAN PLT VOLUME 6.6 fl (7.5-11.1); MONO % 4.6 % (3.8-10.2); NEUT % 89.9 % (42.8-82.8); PLATELET COUNT 398 K/MM3 (134-434); RBC 4.68 M/mm3 (4.00-5.60); RDW 13.3 % (11.9-15.9); WHITE BLOOD COUNT 21.1 K/mm3 (4.0-10.0)
[2019-07-19] MEDS: ALBUTEROL SO4 2.5/IPRATROPIUM 0.5 INH SOL 3 ML VIAL.NEB. NEB SCH ×4 (08:00→20:12)
[2019-07-19 08:27] LABS: ALBUMIN 3.4 g/dl (3.4-5.0); BILIRUBIN,TOTAL 0.4 mg/dL (0.2-1); CALCIUM 9.6 mg/dL (8.5-10.1); CREATININE 0.7 mg/dL (0.55-1.3); PHOSPHOROUS 4.4 mg/dL (2.5-4.9); POTASSIUM 4.9 mmol/L (3.5-5.1); TOT PROT 7.1 g/dl (6.4-8.2)
--- NOTE | 2019-07-19 08:36 | PN ---
Progress Note, Physician Chief Complaint: Less SOB, Prurulent copious sputum with cough. No vomiting. Tolerated PO today. CXR-ZAK History of Present Illness: Alcohol use disorder- abstained since last hospitalization to [facility] Smoker now-attempting toquit. Paroxysmal A.Fib on Eliquis. PAD. LEFT Femoral-tibial bypass by Dr Dillon in 2019. LEFT LS RADICULOPATHY. Disc herniation. Spinal stenosis. Depression. Insomnia. HTN. - Current Medication List Current Medications: Active Medications Albuterol/Ipratropium (Duoneb -) 1 amp NEB RQID [facility] Last Admin: 07/18/19 21:30 Dose: 1 amp Apixaban (Eliquis -) 5 mg PO BID [facility] Last Admin: 07/18/19 22:51 Dose: 5 mg Aspirin (Asa -) 81 mg PO DAILY [facility] Bupropion HCl (Wellbutrin Xl -) 150 mg PO DAILY [facility] Diltiazem HCl (Cardizem Cd -) 360 mg PO DAILY [facility] Guaifenesin (Robitussin -) 10 ml PO Q6H PRN PRN Reason: COUGH Last Admin: 07/18/19 23:33 Dose: 10 ml Ceftriaxone Sodium 1 gm/ (Dextrose) 50 mls @ 100 mls/hr IVPB DAILY [facility]; Protocol Losartan Potassium (Cozaar -) 50 mg PO DAILY [facility] Methylprednisolone Sodium Succinate (Solu-Medrol -) 40 mg IVPUSH DAILY [facility] Polyethylene Glycol (Miralax (For Daily Use) -) 17 gm PO BID [facility] Last Admin: 07/18/19 22:51 Dose: Not Given Thiamine HCl (Vitamin B1 -) 100 mg PO DAILY [facility] Trazodone HCl (Desyrel -) 100 mg PO HS [facility] Last Admin: 07/18/19 23:33 Dose: 100 mg - Objective Vital Signs: Vital Signs Temperature 98.4 F 07/19/19 06:00 Pulse Rate 93 H 07/19/19 06:00 Respiratory Rate 20 07/19/19 06:00 Blood Pressure 103/62 07/19/19 06:00 O2 Sat by Pulse Oximetry (%) 94 L 07/18/19 21:00 Constitutional: Yes: Calm, Mild Distress Eyes: Yes: Conjunctiva Clear, EOM Intact. No: Sclera Icterus HENT: Yes: Atraumatic, Normocephalic. No: Drooling Neck: Yes: Supple, Trachea Midline Cardiovascular: Yes: Regular Rate and Rhythm, Tachycardia, S1, S2, Other (Sinus tachycardia on monitor) Respiratory: Yes: Diminished (B/L) Gastrointestinal: Yes: Normal Bowel Sounds, Soft. No: Abdomen, Obese, Ascites ...Rectal Exam: Yes: Deferred Genitourinary: No: Anuria, Bladder Distention Breast(s): Yes: WNL Musculoskeletal: Yes: WNL Extremities: No: Amputation, Calf Tenderness, Cold, Cyanosis Edema: No Peripheral Pulses WNL: No Integumentary: Yes: WNL Neurological: Yes: WNL ...Motor Strength: WNL Psychiatric: Yes: WNL Labs: CBC, BMP 07/19/19 06:50 07/19/19 06:50 Laboratory Results - last 24 hr 07/18/19 07/18/19 07/18/19 14:58 14:58 14:58 WBC 18.4 H RBC 4.78 Hgb 14.6 Hct 42.9 D MCV 89.8 MCH 30.5 MCHC 33.9 RDW 13.5 Plt Count 412 D MPV 6.7 L Absolute Neuts (auto) 15.0 H Neutrophils % 81.6 Lymphocytes % 9.7 D Monocytes % 8.3 Eosinophils % 0.1 Basophils % 0.3 Nucleated RBC % 0 Sodium 132 L Potassium 4.1 Chloride 99 Carbon Dioxide 24 Anion Gap 9 BUN 8.8 Creatinine 0.6 Est GFR (CKD-EPI)AfAm 118.07 Est GFR (CKD-EPI)NonAf 101.87 Random Glucose 121 H Lactic Acid 1.6 Calcium 9.1 Phosphorus Total Bilirubin 0.5 AST 12 L ALT 25 Alkaline Phosphatase 140 H Total Protein 7.4 Albumin 3.6 Urine Color Urine Appearance Urine pH Ur Specific Schoolcraft Urine Protein Urine Glucose (UA) Urine Ketones Urine Blood Urine Nitrite Urine Bilirubin Urine Urobilinogen Ur Leukocyte Esterase Urine WBC (Auto) Urine RBC (Auto) Urine Casts (Auto) U Epithel Cells (Auto) Urine Bacteria (Auto) 07/18/19 07/19/19 07/19/19 16:00 06:50 06:50 WBC 21.1 H RBC 4.68 Hgb 14.3 Hct 41.7 MCV 89.2 MCH 30.5 MCHC 34.2 RDW 13.3 Plt Count 398 MPV 6.6 L Absolute Neuts (auto) 19.0 H Neutrophils % 89.9 H Lymphocytes % 5.3 L D Monocytes % 4.6 Eosinophils % 0.0 D Basophils % 0.2 Nucleated RBC % 0 Sodium 135 L Potassium 4.9 Chloride 100 Carbon Dioxide 27 Anion Gap 8 BUN 13.0 Creatinine 0.7 Est GFR (CKD-EPI)AfAm 110.82 Est GFR (CKD-EPI)NonAf 95.61 Random Glucose 157 H Lactic Acid Calcium 9.6 Phosphorus 4.4 Total Bilirubin 0.4 AST 17 ALT 25 Alkaline Phosphatase 140 H Total Protein 7.1 Albumin 3.4 Urine Color Dk yellow Urine Appearance Clear Urine pH 5.5 Ur Specific Schoolcraft 1.022 Urine Protein 1+ H Urine Glucose (UA) Negative Urine Ketones 1+ H Urine Blood Negative Urine Nitrite Negative Urine Bilirubin Negative Urine Urobilinogen 0.2 Ur Leukocyte Esterase Negative Urine WBC (Auto) 1 Urine RBC (Auto) 5 Urine Casts (Auto) 14 U Epithel Cells (Auto) 1.6 Urine Bacteria (Auto) 11.5 Problem List - Problems (1) Shortness of breath Assessment/Plan: R/O PNA-R/o bronchiectasis, Bacterial, Further elevation WBC from steroids Atelectasis on CXR Will order CT chest without contrast Ceftriaxone IVPB daily. O2 NC Pulm consult Code(s): R06.02 - SHORTNESS OF BREATH (2) Atrial fib/flutter, transient Assessment/Plan: Continue Eliquis Cardizem 360 mg QD Now observed on Telemetry Code(s): RNZ6960 - (3) COPD (chronic obstructive pulmonary disease) Assessment/Plan: IV steroids Duonebs BID Code(s): J44.9 - CHRONIC OBSTRUCTIVE PULMONARY DISEASE, UNSPECIFIED Qualifiers: COPD type: emphysema (4) HTN (hypertension) Assessment/Plan: Cardizem CD 360 QD Losartan 25 mg QD Code(s): I10 - ESSENTIAL (PRIMARY) HYPERTENSION Qualifiers: Hypertension type: essential hypertension Qualified Code(s): I10 - Essential (primary) hypertension
[2019-07-19] MEDS ORDERED: cefTRIAXone SODIUM 1 GM VIAL ONE (09:19)
[2019-07-19] MEDS ORDERED: DEXTROSE 5%-WATER - 50 ML IVPB ONE (09:19)
[2019-07-19] MEDS ORDERED: methylPREDNISolone NA SUCC 40 MG/1 ML VIAL IVPUSH SCH (10:00)
[2019-07-19] MEDS: LOSARTAN POTASSIUM 50 MG TABLET (FP) PO SCH (10:17)
[2019-07-19] MEDS: APIXABAN 5 MG TABLET PO SCH ×2 (10:18→22:07)
[2019-07-19] MEDS: THIAMINE HCL 100 MG TABLET (FP) PO SCH (10:18)
[2019-07-19] MEDS: ASPIRIN 81 MG CHEWABLE TABLETS PO SCH (10:19)
[2019-07-19] MEDS: POLYETHYLENE GLYCOL 3350 119 GM BTL PO SCH ×2 (10:20→22:08)
[2019-07-19] MEDS: CEFTRIAXONE 1 GM in DEXTROSE 5%-WATER - 50 ML IVPB SCH (10:21)
[2019-07-19 11:13] LABS: ANISOCYTOSIS 0; MACROCYTOSIS 0; PLATELET ESTIMATE NORMAL
--- NOTE | 2019-07-19 14:12 | ECHO ---
Name: SAMSONJEREMIASAmauryKANDY Exam:Adult Echocardiogram Study Date: 07/19/2019 10:59 AM Age: 68 yrs Height: 72 in Weight: 182 lb BSA: 2.0 m2 MMode/2D Measurements & Calculations IVSd: 0.85 cm Ao root diam: 3.8 cm LVIDd: 3.9 cm LA dimension: 3.4 cm LVIDs: 2.6 cm ACS: 2.1 cm LVPWd: 2.2 cm IVSs: 1.7 cm LVPWs: 1.3 cm EDV(Teich): 67.7 ml ESV(Teich): 25.7 ml LVOT diam: 1.9 cm RV S Giorgi: 27.1 cm/sec Doppler Measurements & Calculations MV E max giorgi: 89.3 cm/sec Ao V2 max: 111.3 cm/sec MV A max giorgi: 93.3 cm/sec Ao max P.2 mmHg MV E/A: 0.96 Ao V2 mean: 90.3 cm/sec MV dec time: 0.21 sec Ao mean P.6 mmHg Ao V2 VTI: 28.0 cm RAUDEL(I,D): 2.8 cm2 RAUDEL(V,D): 3.3 cm2 LV V1 max P.3 mmHg MR max giorgi: 211.7 cm/sec LV V1 mean P.0 mmHg MR max P.9 mmHg LV V1 max: 125.4 cm/sec LV V1 mean: 79.3 cm/sec LV V1 VTI: 26.3 cm SV(LVOT): 77.2 ml TR max giorgi: 157.5 cm/sec TR max P.9 mmHg Med Peak E' Giorgi: 5.4 cm/sec Med E/e': 16.7 Lat Peak E' Giorgi: 10.4 cm/sec Lat E/e': 8.6 Procedure A complete two-dimensional transthoracic echocardiogram was performed (2D, M-mode, Doppler and color flow Doppler). The study was technically difficult with many images being suboptimal in quality. Left Ventricle The left ventricular size, thickness and function are normal. The left ventricular ejection fraction is normal. Ejection Fraction = 55-60%. Regional wall motion abnormalities cannot be excluded due to limi laura visualization. Right Ventricle The right ventricle is normal in size and function. Atria Normal left and right atrial size and function. Mitral Valve There is no mitral regurgitation noted. Tricuspid Valve There is trace tricuspid regurgitation. There was insufficient TR detected to calculate RV systolic p ressure. Aortic Valve No hemodynamically significant valvular aortic stenosis. No aortic regurgitation is present. Pulmonic Valve The pulmonic valve is not well visualized. Great Vessels The aortic root is not well visualized. Pericardium/Pleura There is no pericardial effusion. Interpretation Summary The study was technically difficult with many images being suboptimal in quality. The left ventricular size, thickness and function are normal The right ventricle is normal in size and function. There is trace tricuspid regurgitation. MD Rigoberto Joe 07/19/2019 02:11 PM
[2019-07-19] MEDS ORDERED: ALBUTEROL SO4 0.083% IH SOL 2.5 MG/3 ML VIAL.NEB. NEB PRN (14:39)
--- NOTE | 2019-07-19 14:44 | CON.PULM ---
Consult Consult Specialty:: PULM/CCM Referred by:: JOSUE Reason for Consultation:: SOB - History of Present Illness Chief Complaint: SOB History of Present Illness: 68 M, COPD due to previous smoking (quit 03/2019 with the use of Chantix), HTN, and PAF. Admitted via the ER due to progressive shortness of breath and productive cough for 2 days. No travel history or sick contacts. No hemoptysis or night sweats. Has not had baseline PFTs. There is no specific history that would be consistent with OSAS. 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 No: Asthma, Cancer, O2 Dependent, Pulmonary Embolus, Pulmonary Fibrosis, Sleep Apnea Gastrointestinal: No: Ascites, Cancer, Constipation, Crohn's Disease, Diverticulitis, Diverticulosis, Esophageal Varices, Gastritis, GERD, GI Bleed, Hemorrhoids, Hiatal Hernia, Inflamatory Bowel Disease, Irritable Bowel Disease, Pancreatitis, Peptic Ulcer Disease, Ulcerative Colitis, Other Hepatobiliary: No: Cirrhosis, Cholelithiasis, Cholecystitis, Choledocholithiasis , Hepatitis A, Hepatitis B, Hepatitis C, Other Renal/: No: Renal Failure, Renal Inusuff, BPH, Cancer, Hematuria, Hemodialysis , Neurogenic Bladder, Renal Calculi, UTI, Other Infectious Disease: No: AIDS, C-Diff, Herpes Zoster, HIV, MRSA, STD's, Tuberculosis, VREF, Other Psych: Yes: Depression. No: Addictions, Anxiety, Bipolar, Panic, Psychosis, Schizophrenia, Other Musculoskeletal: Yes: Other (LS radiculopathy). No: Bursitis, Chronic low back pain, Hemiparesis, Hemiplegia, Osteoarthritis, Paraplegia Rheumatology: No: Fibromyalgia, Gout, Lupus, Rheumatoid Arthritis, Sarcoidosis, Vasculitis, Other ENT: No: Allergic Rhinitis, Sinusitis, Other Endocrine: No: [place]'s Disease, Jakub's Disease, Diabetes Insipidus, Diabetes Mellitus, Hyperparathyroidism, Hyperthyroidism, Hypothyroidism, Osteopenia, SIADH, Other - Alcohol/Substance Use Hx Alcohol Use: No - Smoking History Smoking history: Former smoker Have you smoked in the past 12 months: Yes Aproximately how many cigarettes per day: 10 If you are a former smoker, when did you quit?: 03/2019 Home Medications - Allergies Allergies/Adverse Reactions: Allergies Allergy/AdvReac Type Severity Reaction Status Date / Time No Known Allergies Allergy Verified 07/18/19 15:38 - Home Medications Home Medications: Ambulatory Orders Multivitamin [Multiple Vitamins] 1 each PO DAILY 03/09/19 Varenicline Tartrate [Chantix -] 1 mg PO DAILY 03/09/19 traZODone HCL [Trazodone HCl] 100 mg PO HS 03/09/19 Apixaban [Eliquis -] 5 mg PO BID #60 tablet 03/16/19 Aspirin [ASA -] 81 mg PO DAILY tab.chew 03/16/19 Docusate Sodium [Colace -] 100 mg PO BID PRN #14 capsule 03/16/19 Oxycodone HCl/Acetaminophen [Percocet 5-325 mg Tablet] 1 - 2 tab PO Q6H PRN #30 tab MDD 8 03/16/19 Diltiazem Cd [Cardizem Cd -] 120 mg PO DAILY #60 cap.cd.24h 03/17/19 Walker [Ultra-Light Rollator] 1 each MC DAILY #1 each 03/17/19 Review of Systems - Review of Systems Constitutional: reports: Malaise. denies: Chills, Fever, Night Sweats Eyes: reports: No Symptoms HENT: reports: No Symptoms Neck: reports: No Symptoms Cardiovascular: reports: Shortness of Breath. denies: Chest Pain, Edema, Palpitations Respiratory: reports: Cough, SOB, SOB on Exertion, Wheezing. denies: Hemoptysis , Orthopnea, Snoring Gastrointestinal: reports: No Symptoms Genitourinary: reports: No Symptoms Breasts: reports: No Symptoms Reported Musculoskeletal: reports: No Symptoms Integumentary: reports: No Symptoms Neurological: reports: No Symptoms Endocrine: reports: No Symptoms Hematology/Lymphatic: reports: No Symptoms Psychiatric: reports: No Symptoms Physical Exam Vital Sings: Vital Signs Temperature 98.7 F 07/19/19 09:00 Pulse Rate 93 H 07/19/19 09:00 Respiratory Rate 20 07/19/19 09:00 Blood Pressure 115/72 07/19/19 09:00 O2 Sat by Pulse Oximetry (%) 95 07/19/19 09:00 Constitutional: Yes: Well Nourished, No Distress, Calm Eyes: Yes: Conjunctiva Clear, EOM Intact HENT: Yes: Atraumatic, Normocephalic Neck: Yes: Supple, Trachea Midline Cardiovascular: Yes: Regular Rate and Rhythm Respiratory: Yes: Cough, Diminished, On Nasal O2, Rhonchi, SOB, SOB on Exertion , Tachypnea, Wheezes. No: Accessory Muscle Use, Rales, Stridor ...Inspection: Yes: WNL ...Clubbing: No Gastrointestinal: Yes: Normal Bowel Sounds, Soft Renal/: Yes: WNL Musculoskeletal: Yes: WNL Extremities: Yes: WNL Edema: No Peripheral Pulses WNL: Yes Integumentary: Yes: WNL Neurological: Yes: WNL, Alert, Oriented ...Motor Strength: WNL Psychiatric: Yes: WNL, Alert, Oriented Labs: CBC, BMP 07/19/19 06:50 07/19/19 06:50 Imaging - Results Chest X-ray: Report Reviewed, Image Reviewed Problem List - Problems (1) Acute exacerbation of chronic obstructive pulmonary disease (COPD) Code(s): J44.1 - CHRONIC OBSTRUCTIVE PULMONARY DISEASE W (ACUTE) EXACERBATION (2) Shortness of breath Code(s): R06.02 - SHORTNESS OF BREATH (3) Atherosclerosis of lower extremity with rest pain Code(s): I70.229 - ATHSCL [place] ARTERIES OF EXTRM W REST PAIN, UNSP EXTREMITY Qualifiers: Peripheral atherosclerosis artery type: [place] artery Laterality: bilateral Qualified Code(s): I70.223 - Atherosclerosis of [place] arteries of extremities with rest pain, bilateral legs (4) Atrial fib/flutter, transient Code(s): NWQ8839 - (5) COPD (chronic obstructive pulmonary disease) Code(s): J44.9 - CHRONIC OBSTRUCTIVE PULMONARY DISEASE, UNSPECIFIED Qualifiers: COPD type: emphysema (6) HTN (hypertension) Code(s): I10 - ESSENTIAL (PRIMARY) HYPERTENSION Qualifiers: Hypertension type: essential hypertension Qualified Code(s): I10 - Essential (primary) hypertension Assessment/Plan Rocephin daily O2 as needed Continued smoking abstinence counseled [facility] [place] Outpatient PFTs once stable VTE prophylaxis Check sputum Noted CT chest ordered Will follow Thank you. Dr Posada
--- NOTE | 2019-07-19 15:12 | EKG ---
Test Reason : Blood Pressure : / mmHG Vent. Rate : 090 BPM Atrial Rate : 416 BPM P-R Int : 000 ms QRS Dur : 120 ms QT Int : 402 ms P-R-T Axes : 000 066 050 degrees QTc Int : 491 ms POOR DATA QUALITY, INTERPRETATION MAY BE ADVERSELY AFFECTED SINUS RHYTHM RIGHT BUNDLE BRANCH BLOCK ABNORMAL ECG Confirmed by ISMA RENTERIA MD ([id number]) on 07/19/2019 3:12:30 PM Referred By: Confirmed By:ISMA RENTERIA MD
[2019-07-19] MEDS: methylPREDNISolone NA SUCC 40 MG/1 ML VIAL IVPUSH SCH (22:07)
[2019-07-19] MEDS: traZODone HCL 50 MG TABLET (FP) PO SCH (22:07)
[2019-07-20 07:12] LABS: BASO % 0.4 % (0-2.0); HEMATOCRIT 42.2 % (35.4-49); HEMOGLOBIN 14.4 GM/dL (11.7-16.9); LYMPH % 6.1 % (8-40); MCH 30.4 pg (25.7-33.7); MEAN CELL VOLUME 89.5 fl (80-96); MEAN PLT VOLUME 6.7 fl (7.5-11.1); MONO % 5.4 % (3.8-10.2); NEUT % 88.1 % (42.8-82.8); PLATELET COUNT 435 K/MM3 (134-434); RBC 4.72 M/mm3 (4.00-5.60); RDW 13.5 % (11.9-15.9); WHITE BLOOD COUNT 25.2 K/mm3 (4.0-10.0)
[2019-07-20 07:44] LABS: ALBUMIN 3.3 g/dl (3.4-5.0); BILIRUBIN,TOTAL 0.2 mg/dL (0.2-1); BLOOD UREA NITROGEN 19.6 mg/dL (7-18); CREATININE 0.7 mg/dL (0.55-1.3); POTASSIUM 4.5 mmol/L (3.5-5.1)
[2019-07-20] MEDS: ALBUTEROL SO4 2.5/IPRATROPIUM 0.5 INH SOL 3 ML VIAL.NEB. NEB SCH ×4 (08:05→21:20)
[2019-07-20] MEDS ORDERED: DEXTROSE 5%-WATER - 50 ML IVPB ONE (08:56)
[2019-07-20] MEDS ORDERED: cefTRIAXone SODIUM 1 GM VIAL ONE (08:56)
[2019-07-20 09:03] LABS: ANISOCYTOSIS 1+; MACROCYTOSIS 0; OVALOCYTE 1+; PLATELET ESTIMATE NORMAL
[2019-07-20] MEDS: APIXABAN 5 MG TABLET PO SCH ×2 (09:16→22:51)
[2019-07-20] MEDS: ASPIRIN 81 MG CHEWABLE TABLETS PO SCH (09:16)
[2019-07-20] MEDS: CEFTRIAXONE 1 GM in DEXTROSE 5%-WATER - 50 ML IVPB SCH (09:16)
[2019-07-20] MEDS: LOSARTAN POTASSIUM 50 MG TABLET (FP) PO SCH (09:16)
[2019-07-20] MEDS: THIAMINE HCL 100 MG TABLET (FP) PO SCH (09:16)
[2019-07-20] MEDS: methylPREDNISolone NA SUCC 40 MG/1 ML VIAL IVPUSH SCH ×2 (09:17→22:52)
[2019-07-20] MEDS: POLYETHYLENE GLYCOL 3350 119 GM BTL PO SCH ×2 (09:17→22:51)
--- NOTE | 2019-07-20 09:55 | PN ---
Progress Note, Physician Chief Complaint: Persistent cough with copious sputum continues SOB improved with O2 NC CT chest reviewed today with Dr Farias-extensive ILD, COPD, LLL infiltate/ atelectasis. Non-specific LN. ASC AA 4.3 cm, coronary Ca, 2.3 adrenal adenoma. History of Present Illness: Alcohol use disorder- abstained since last hospitalization to [facility] Smoker now-attempting toquit. Paroxysmal A.Fib on Eliquis. PAD. LEFT Femoral-tibial bypass by Dr Dillon in 2019. LEFT LS RADICULOPATHY. Disc herniation. Spinal stenosis. Depression. Insomnia. HTN. - Current Medication List Current Medications: Active Medications Albuterol Sulfate (Ventolin 0.083% Nebulizer Soln -) 1 amp NEB Q4H PRN PRN Reason: SHORT OF BREATH/WHEEZING Albuterol/Ipratropium (Duoneb -) 1 amp NEB RQID [facility] Last Admin: 07/20/19 08:05 Dose: 1 amp Apixaban (Eliquis -) 5 mg PO BID [facility] Last Admin: 07/20/19 09:16 Dose: 5 mg Aspirin (Asa -) 81 mg PO DAILY [facility] Last Admin: 07/20/19 09:16 Dose: 81 mg Bupropion HCl (Wellbutrin Xl -) 150 mg PO DAILY [facility] Last Admin: 07/20/19 09:16 Dose: 150 mg Diltiazem HCl (Cardizem Cd -) 360 mg PO DAILY [facility] Last Admin: 07/20/19 09:15 Dose: 360 mg Guaifenesin (Robitussin -) 10 ml PO Q6H PRN PRN Reason: COUGH Last Admin: 07/18/19 23:33 Dose: 10 ml Ceftriaxone Sodium 1 gm/ (Dextrose) 50 mls @ 100 mls/hr IVPB DAILY [facility]; Protocol Last Admin: 07/20/19 09:16 Dose: 100 mls/hr Losartan Potassium (Cozaar -) 50 mg PO DAILY [facility] Last Admin: 07/20/19 09:16 Dose: 50 mg Methylprednisolone Sodium Succinate (Solu-Medrol -) 40 mg IVPUSH BID [facility] Last Admin: 07/20/19 09:17 Dose: 40 mg Polyethylene Glycol (Miralax (For Daily Use) -) 17 gm PO BID [facility] Last Admin: 07/20/19 09:17 Dose: 17 gm Thiamine HCl (Vitamin B1 -) 100 mg PO DAILY [facility] Last Admin: 07/20/19 09:16 Dose: 100 mg Trazodone HCl (Desyrel -) 100 mg PO HS [facility] Last Admin: 07/19/19 22:07 Dose: 100 mg - Objective Vital Signs: Vital Signs Temperature 98.2 F 07/20/19 02:04 Pulse Rate 92 H 07/20/19 02:04 Respiratory Rate 20 07/20/19 02:04 Blood Pressure 103/73 07/20/19 05:56 O2 Sat by Pulse Oximetry (%) 91 L 07/19/19 21:00 Constitutional: Yes: Mild Distress Eyes: Yes: Conjunctiva Clear, EOM Intact HENT: Yes: Atraumatic, Normocephalic. No: Drooling, Epistaxis Neck: Yes: Trachea Midline Cardiovascular: Yes: Regular Rate and Rhythm, S1, S2. No: Tachycardia, JVD Respiratory: Yes: Diminished (B/L) Gastrointestinal: Yes: Normal Bowel Sounds, Soft. No: Abdomen, Obese, Ascites ...Rectal Exam: Yes: Deferred Genitourinary: No: Anuria, Bladder Distention Breast(s): No: Left, Right Extremities: No: Amputation, Calf Tenderness, Cold Edema: No Peripheral Pulses WNL: No Integumentary: Yes: WNL ...Motor Strength: WNL Psychiatric: Yes: WNL Labs: CBC, BMP 07/20/19 06:35 07/20/19 06:35 - ....Imaging Cat Scan: Report Reviewed, Image Reviewed Problem List - Problems (1) Shortness of breath Assessment/Plan: LLL PNA-atelectasis., Further elevation WBC from steroids ILD-honeycombing. Ceftriaxone IVPB daily. O2 NC Pulm consult f/u Code(s): R06.02 - SHORTNESS OF BREATH (2) Atrial fib/flutter, transient Assessment/Plan: Continue Eliquis Cardizem 360 mg QD Now observed on Telemetry Code(s): [id number] - (3) COPD (chronic obstructive pulmonary disease) Assessment/Plan: IV steroids Duonebs BID Code(s): J44.9 - CHRONIC OBSTRUCTIVE PULMONARY DISEASE, UNSPECIFIED Qualifiers: COPD type: emphysema (4) HTN (hypertension) Assessment/Plan: Cardizem CD 360 QD Losartan 25 mg QD Noted renal artery calcification on CT Code(s): I10 - ESSENTIAL (PRIMARY) HYPERTENSION Qualifiers: Hypertension type: essential hypertension Qualified Code(s): I10 - Essential (primary) hypertension (5) PNA (pneumonia) Assessment/Plan: Continue Ceftriaxone Problems reviewed: Yes Code(s): J18.9 - PNEUMONIA, UNSPECIFIED ORGANISM Qualifiers: Laterality: left Lung location: lower lobe of lung
--- NOTE | 2019-07-20 10:53 | PN ---
Progress Note (short form) - Note Progress Note: Breathing feels a little better today. Congested cough. No hemoptysis. CT: inhomogenous interstitial changes with areas of cystic changes / possible acute infiltrates in the LLL / non-specific mediastinal adenopathy Intake & Output 07/17/19 07/18/19 07/19/19 07/20/19 23:59 23:59 23:59 23:59 Intake Total 10 970 Output Total 350 Balance 10 970 -350 Weight 182 lb 9.6 oz Last Vital Signs Temp Pulse Resp BP Pulse Ox 98.2 F 92 H 20 103/73 96 07/20/19 02:04 07/20/19 02:04 07/20/19 09:00 07/20/19 05:56 07/20/19 10:00 Active Medications Albuterol Sulfate (Ventolin 0.083% Nebulizer Soln -) 1 amp NEB Q4H PRN PRN Reason: SHORT OF BREATH/WHEEZING Albuterol/Ipratropium (Duoneb -) 1 amp NEB RQID [facility] Last Admin: 07/20/19 08:05 Dose: 1 amp Apixaban (Eliquis -) 5 mg PO BID [facility] Last Admin: 07/20/19 09:16 Dose: 5 mg Aspirin (Asa -) 81 mg PO DAILY [facility] Last Admin: 07/20/19 09:16 Dose: 81 mg Bupropion HCl (Wellbutrin Xl -) 150 mg PO DAILY [facility] Last Admin: 07/20/19 09:16 Dose: 150 mg Diltiazem HCl (Cardizem Cd -) 360 mg PO DAILY [facility] Last Admin: 07/20/19 09:15 Dose: 360 mg Guaifenesin (Robitussin -) 10 ml PO Q6H PRN PRN Reason: COUGH Last Admin: 07/18/19 23:33 Dose: 10 ml Ceftriaxone Sodium 1 gm/ (Dextrose) 50 mls @ 100 mls/hr IVPB DAILY [facility]; Protocol Last Admin: 07/20/19 09:16 Dose: 100 mls/hr Losartan Potassium (Cozaar -) 50 mg PO DAILY [facility] Last Admin: 07/20/19 09:16 Dose: 50 mg Methylprednisolone Sodium Succinate (Solu-Medrol -) 40 mg IVPUSH BID [facility] Last Admin: 07/20/19 09:17 Dose: 40 mg Polyethylene Glycol (Miralax (For Daily Use) -) 17 gm PO BID [facility] Last Admin: 07/20/19 09:17 Dose: 17 gm Thiamine HCl (Vitamin B1 -) 100 mg PO DAILY [facility] Last Admin: 07/20/19 09:16 Dose: 100 mg Trazodone HCl (Desyrel -) 100 mg PO HS [facility] Last Admin: 07/19/19 22:07 Dose: 100 mg Constitutional: Yes: Well Nourished, No Distress, Calm Eyes: Yes: Conjunctiva Clear, EOM Intact HENT: Yes: Atraumatic, Normocephalic Neck: Yes: Supple, Trachea Midline Cardiovascular: Yes: Regular Rate and Rhythm Respiratory: Yes: Cough, Diminished, On Nasal O2, Rhonchi. No: Accessory Muscle Use, Rales, Stridor ...Inspection: Yes: WNL ...Clubbing: No Gastrointestinal: Yes: Normal Bowel Sounds, Soft Renal/: Yes: WNL Musculoskeletal: Yes: WNL Extremities: Yes: WNL Edema: No Peripheral Pulses WNL: Yes Integumentary: Yes: WNL Neurological: Yes: WNL, Alert, Oriented ...Motor Strength: WNL Psychiatric: Yes: WNL, Alert, Oriented Labs: Laboratory Results - last 24 hr 07/19/19 07/20/19 07/20/19 06:50 06:35 06:35 WBC 25.2 H RBC 4.72 Hgb 14.4 Hct 42.2 MCV 89.5 MCH 30.4 MCHC 34.0 RDW 13.5 Plt Count 435 H MPV 6.7 L Absolute Neuts (auto) 22.2 H Neutrophils % 88.1 H Neutrophils % (Manual) 94.0 H 89.1 H Band Neutrophils % 0.0 1.0 Lymphocytes % 6.1 L Lymphocytes % (Manual) 2.0 L 4.0 L D Monocytes % 5.4 Monocytes % (Manual) 2 L 6 D Eosinophils % 0.0 Eosinophils % (Manual) 0.0 0.0 Basophils % 0.4 Basophils % (Manual) 0.0 0.0 Myelocytes % (Man) 0 0 Promyelocytes % (Man) 0 0 Blast Cells % (Manual) 0 0 Nucleated RBC % 0 0 Metamyelocytes 0 0 Hypochromia 0 0 Platelet Estimate Normal Normal Platelet Comment Present Polychromasia 0 0 Poikilocytosis 0 1+ Anisocytosis 0 1+ Microcytosis 0 1+ Macrocytosis 0 0 Spherocytes 1+ Ovalocytes 1+ Sodium 136 Potassium 4.5 Chloride 102 Carbon Dioxide 24 Anion Gap 9 BUN 19.6 H Creatinine 0.7 Est GFR (CKD-EPI)AfAm 110.82 Est GFR (CKD-EPI)NonAf 95.61 Random Glucose 168 H Calcium 9.0 Total Bilirubin 0.2 AST 23 ALT 35 Alkaline Phosphatase 140 H Total Protein 7.0 Albumin 3.3 L Problem List - Problems (1) Acute exacerbation of chronic obstructive pulmonary disease (COPD) Code(s): J44.1 - CHRONIC OBSTRUCTIVE PULMONARY DISEASE W (ACUTE) EXACERBATION (2) Shortness of breath Code(s): R06.02 - SHORTNESS OF BREATH (3) Atherosclerosis of lower extremity with rest pain Code(s): I70.229 - ATHSCL [place] ARTERIES OF EXTRM W REST PAIN, UNSP EXTREMITY Qualifiers: Peripheral atherosclerosis artery type: [place] artery Laterality: bilateral Qualified Code(s): I70.223 - Atherosclerosis of [place] arteries of extremities with rest pain, bilateral legs (4) Atrial fib/flutter, transient Code(s): [id number] - (5) COPD (chronic obstructive pulmonary disease) Code(s): J44.9 - CHRONIC OBSTRUCTIVE PULMONARY DISEASE, UNSPECIFIED Qualifiers: COPD type: emphysema (6) HTN (hypertension) Code(s): I10 - ESSENTIAL (PRIMARY) HYPERTENSION Qualifiers: Hypertension type: essential hypertension Qualified Code(s): I10 - Essential (primary) hypertension Assessment/Plan ILD: unspecified etiology LLL CAP Rocephin daily O2 as needed Continued smoking abstinence counseled BD [place] Outpatient PFTs once stable VTE prophylaxis Check sputum CT followup in 6 weeks to document resolution or persistence of findings Dr Posada Problem List - Problems (1) Acute exacerbation of chronic obstructive pulmonary disease (COPD) Code(s): J44.1 - CHRONIC OBSTRUCTIVE PULMONARY DISEASE W (ACUTE) EXACERBATION (2) Shortness of breath Code(s): R06.02 - SHORTNESS OF BREATH (3) Atherosclerosis of lower extremity with rest pain Code(s): I70.229 - ATHSCL [place] ARTERIES OF EXTRM W REST PAIN, UNSP EXTREMITY Qualifiers: Peripheral atherosclerosis artery type: [place] artery Laterality: bilateral Qualified Code(s): I70.223 - Atherosclerosis of [place] arteries of extremities with rest pain, bilateral legs (4) Atrial fib/flutter, transient Code(s): [id number] - (5) COPD (chronic obstructive pulmonary disease) Code(s): J44.9 - CHRONIC OBSTRUCTIVE PULMONARY DISEASE, UNSPECIFIED Qualifiers: COPD type: emphysema (6) HTN (hypertension) Code(s): I10 - ESSENTIAL (PRIMARY) HYPERTENSION Qualifiers: Hypertension type: essential hypertension Qualified Code(s): I10 - Essential (primary) hypertension
[2019-07-20] MEDS: traZODone HCL 50 MG TABLET (FP) PO SCH (22:51)
[2019-07-21] MEDS: ALBUTEROL SO4 2.5/IPRATROPIUM 0.5 INH SOL 3 ML VIAL.NEB. NEB SCH ×4 (07:25→20:39)
[2019-07-21 08:04] LABS: BASO % 0.3 % (0-2.0); HEMATOCRIT 42.8 % (35.4-49); HEMOGLOBIN 14.6 GM/dL (11.7-16.9); LYMPH % 9.8 % (8-40); MCH 30.6 pg (25.7-33.7); MEAN CELL VOLUME 89.8 fl (80-96); MEAN PLT VOLUME 6.8 fl (7.5-11.1); MONO % 7.5 % (3.8-10.2); NEUT % 82.4 % (42.8-82.8); PLATELET COUNT 452 K/MM3 (134-434); RBC 4.77 M/mm3 (4.00-5.60); RDW 13.5 % (11.9-15.9); WHITE BLOOD COUNT 20.5 K/mm3 (4.0-10.0)
[2019-07-21 09:29] LABS: ALBUMIN 3.4 g/dl (3.4-5.0); BILIRUBIN,TOTAL 0.3 mg/dL (0.2-1); CALCIUM 9.3 mg/dL (8.5-10.1); CREATININE 0.6 mg/dL (0.55-1.3); POTASSIUM 4.7 mmol/L (3.5-5.1); TOT PROT 7.1 g/dl (6.4-8.2)
[2019-07-21] MEDS ORDERED: DEXTROSE 5%-WATER - 50 ML IVPB ONE (09:51)
[2019-07-21] MEDS ORDERED: cefTRIAXone SODIUM 1 GM VIAL ONE (09:51)
[2019-07-21] MEDS: LOSARTAN POTASSIUM 50 MG TABLET (FP) PO SCH (09:59)
[2019-07-21] MEDS: ASPIRIN 81 MG CHEWABLE TABLETS PO SCH (09:59)
[2019-07-21] MEDS: CEFTRIAXONE 1 GM in DEXTROSE 5%-WATER - 50 ML IVPB SCH (09:59)
[2019-07-21] MEDS: APIXABAN 5 MG TABLET PO SCH ×2 (09:59→22:47)
[2019-07-21] MEDS: THIAMINE HCL 100 MG TABLET (FP) PO SCH (10:00)
[2019-07-21] MEDS: methylPREDNISolone NA SUCC 40 MG/1 ML VIAL IVPUSH SCH ×2 (10:00→22:47)
[2019-07-21] MEDS: POLYETHYLENE GLYCOL 3350 119 GM BTL PO SCH ×2 (10:01→22:48)
--- NOTE | 2019-07-21 12:25 | PN ---
Progress Note (short form) - Note Progress Note: PULMONARY VSS/AFEBRILE SUBJECTIVE IMPROVEMENT Constitutional: Yes: Well Nourished, No Distress, Calm Eyes: Yes: Conjunctiva Clear, EOM Intact HENT: Yes: Atraumatic, Normocephalic Neck: Yes: Supple, Trachea Midline Cardiovascular: Yes: Regular Rate and Rhythm Respiratory: Yes: Cough, Diminished, On Nasal O2, Rhonchi. No: Accessory Muscle Use, Rales, Stridor ...Inspection: Yes: WNL ...Clubbing: No Gastrointestinal: Yes: Normal Bowel Sounds, Soft Renal/: Yes: WNL Musculoskeletal: Yes: WNL Extremities: Yes: WNL Edema: No Peripheral Pulses WNL: Yes Integumentary: Yes: WNL Neurological: Yes: WNL, Alert, Oriented ...Motor Strength: WNL Psychiatric: Yes: WNL, Alert, Oriented Labs/Radiographs noted ILD: unspecified etiology LLL CAP Antibiotics O2 as needed Continued smoking abstinence counseled BD [place] Outpatient PFTs once stable VTE prophylaxis Check sputum CT followup in 6 weeks to document resolution or persistence of findings Dr Maykel Quintanilla
[2019-07-21 12:56] LABS: OVALOCYTE 1+; TARGET CELLS 1+; TEAR DROP CELLS 1+
[2019-07-21 12:57] LABS: PLATELET ESTIMATE SLT INCREASE
--- NOTE | 2019-07-21 17:24 | PN ---
Progress Note, Physician Chief Complaint: sob History of Present Illness: seen and examined at bedside. doing well, feeling better. still with productive cough - Current Medication List Current Medications: Active Medications Albuterol Sulfate (Ventolin 0.083% Nebulizer Soln -) 1 amp NEB Q4H PRN PRN Reason: SHORT OF BREATH/WHEEZING Albuterol/Ipratropium (Duoneb -) 1 amp NEB RQID [facility] Last Admin: 07/21/19 15:25 Dose: 1 amp Apixaban (Eliquis -) 5 mg PO BID [facility] Last Admin: 07/21/19 09:59 Dose: 5 mg Aspirin (Asa -) 81 mg PO DAILY [facility] Last Admin: 07/21/19 09:59 Dose: 81 mg Bupropion HCl (Wellbutrin Xl -) 150 mg PO DAILY [facility] Last Admin: 07/21/19 09:58 Dose: 150 mg Diltiazem HCl (Cardizem Cd -) 360 mg PO DAILY [facility] Last Admin: 07/21/19 09:58 Dose: 360 mg Guaifenesin (Robitussin -) 10 ml PO Q6H PRN PRN Reason: COUGH Last Admin: 07/18/19 23:33 Dose: 10 ml Ceftriaxone Sodium 1 gm/ (Dextrose) 50 mls @ 100 mls/hr IVPB DAILY [facility]; Protocol Last Admin: 07/21/19 09:59 Dose: 100 mls/hr Losartan Potassium (Cozaar -) 50 mg PO DAILY [facility] Last Admin: 07/21/19 09:59 Dose: 50 mg Methylprednisolone Sodium Succinate (Solu-Medrol -) 40 mg IVPUSH BID [facility] Last Admin: 07/21/19 10:00 Dose: 40 mg Polyethylene Glycol (Miralax (For Daily Use) -) 17 gm PO BID [facility] Last Admin: 07/21/19 10:01 Dose: 17 gm Thiamine HCl (Vitamin B1 -) 100 mg PO DAILY [facility] Last Admin: 07/21/19 10:00 Dose: 100 mg Trazodone HCl (Desyrel -) 100 mg PO HS [facility] Last Admin: 07/20/19 22:51 Dose: Not Given - Objective Vital Signs: Vital Signs Temperature 98 F 07/21/19 13:00 Pulse Rate 87 07/21/19 13:00 Respiratory Rate 20 07/21/19 13:00 Blood Pressure 117/68 07/21/19 13:00 O2 Sat by Pulse Oximetry (%) 92 L 07/21/19 08:39 Constitutional: Yes: Well Nourished, No Distress, Calm Cardiovascular: Yes: WNL, Regular Rate and Rhythm Respiratory: Yes: Cough, Rhonchi (at bases). No: Accessory Muscle Use, Poor Air Entry, SOB Gastrointestinal: Yes: WNL, Normal Bowel Sounds, Soft Musculoskeletal: Yes: WNL Extremities: Yes: WNL Edema: No Labs: CBC, BMP 07/21/19 07:05 07/21/19 07:05 Problem List - Problems (1) Acute exacerbation of chronic obstructive pulmonary disease (COPD) Code(s): J44.1 - CHRONIC OBSTRUCTIVE PULMONARY DISEASE W (ACUTE) EXACERBATION (2) PNA (pneumonia) Code(s): J18.9 - PNEUMONIA, UNSPECIFIED ORGANISM Qualifiers: Laterality: left Lung location: lower lobe of lung (3) Atrial fib/flutter, transient Code(s): [id number] - (4) HTN (hypertension) Code(s): I10 - ESSENTIAL (PRIMARY) HYPERTENSION Qualifiers: Hypertension type: essential hypertension Qualified Code(s): I10 - Essential (primary) hypertension Assessment/Plan Assessment: ILD LLL pneumonia P. Afib HTN AAA Hx ETOH abuse PAD Spinal stenosis Depression Insomnia Plan: -cw IV abx -cw IV steroids -inhaled nebs -smoking cessation counseling -repeat CT in 6 weeks -sputum AFB pending -pulm eval -cw current regimen
[2019-07-21] MEDS: traZODone HCL 50 MG TABLET (FP) PO SCH (22:47)
[2019-07-22 06:27] LABS: BASO % 0.3 % (0-2.0); EOS % 0.2 % (0-4.5); HEMATOCRIT 45.8 % (35.4-49); HEMOGLOBIN 15.5 GM/dL (11.7-16.9); LYMPH % 10.3 % (8-40); MCH 30.6 pg (25.7-33.7); MEAN PLT VOLUME 6.7 fl (7.5-11.1); MONO % 0.2 % (3.8-10.2); PLATELET COUNT 479 K/MM3 (134-434); RBC 5.09 M/mm3 (4.00-5.60); RDW 13.7 % (11.9-15.9); WHITE BLOOD COUNT 21.6 K/mm3 (4.0-10.0)
[2019-07-22] MEDS: ALBUTEROL SO4 2.5/IPRATROPIUM 0.5 INH SOL 3 ML VIAL.NEB. NEB SCH ×4 (07:20→20:36)
[2019-07-22] MEDS ORDERED: DEXTROSE 5%-WATER - 50 ML IVPB ONE (08:34)
[2019-07-22] MEDS ORDERED: cefTRIAXone SODIUM 1 GM VIAL ONE (08:34)
[2019-07-22 09:42] LABS: ANISOCYTOSIS 1+; MACROCYTOSIS 0; PLATELET ESTIMATE NORMAL
[2019-07-22] MEDS: ASPIRIN 81 MG CHEWABLE TABLETS PO SCH (10:14)
[2019-07-22] MEDS: LOSARTAN POTASSIUM 50 MG TABLET (FP) PO SCH (10:15)
[2019-07-22] MEDS: POLYETHYLENE GLYCOL 3350 119 GM BTL PO SCH ×2 (10:15→22:21)
[2019-07-22] MEDS: APIXABAN 5 MG TABLET PO SCH ×2 (10:15→22:16)
[2019-07-22] MEDS: methylPREDNISolone NA SUCC 40 MG/1 ML VIAL IVPUSH SCH ×2 (10:16→22:16)
[2019-07-22] MEDS: CEFTRIAXONE 1 GM in DEXTROSE 5%-WATER - 50 ML IVPB SCH (10:16)
[2019-07-22] MEDS: THIAMINE HCL 100 MG TABLET (FP) PO SCH (10:16)
--- NOTE | 2019-07-22 11:28 | PN ---
Progress Note (short form) - Note Progress Note: PULMONARY VSS/AFEBRILE SUBJECTIVE IMPROVEMENT MUCOUS PRODUCTION Constitutional: Yes: Well Nourished, No Distress, Calm Eyes: Yes: Conjunctiva Clear, EOM Intact HENT: Yes: Atraumatic, Normocephalic Neck: Yes: Supple, Trachea Midline Cardiovascular: Yes: Regular Rate and Rhythm Respiratory: Yes: Cough, Diminished, On Nasal O2, Rhonchi. No: Accessory Muscle Use, Rales, Stridor ...Inspection: Yes: WNL ...Clubbing: No Gastrointestinal: Yes: Normal Bowel Sounds, Soft Renal/: Yes: WNL Musculoskeletal: Yes: WNL Extremities: Yes: WNL Edema: No Peripheral Pulses WNL: Yes Integumentary: Yes: WNL Neurological: Yes: WNL, Alert, Oriented ...Motor Strength: WNL Psychiatric: Yes: WNL, Alert, Oriented Labs/Radiographs noted ILD: unspecified etiology LLL CAP Antibiotics O2 as needed Continued smoking abstinence counseled [facility] [place] Outpatient PFTs once stable VTE prophylaxis Check sputum CT followup in 6 weeks to document resolution or persistence of findings Dr Maykel Quintanilla
--- NOTE | 2019-07-22 14:45 | PN ---
Progress Note, Physician Chief Complaint: sob History of Present Illness: seen and examined at bedside. doing well, feeling better. still with productive cough - Current Medication List Current Medications: Active Medications Albuterol Sulfate (Ventolin 0.083% Nebulizer Soln -) 1 amp NEB Q4H PRN PRN Reason: SHORT OF BREATH/WHEEZING Albuterol/Ipratropium (Duoneb -) 1 amp NEB RQID [facility] Last Admin: 07/22/19 11:10 Dose: 1 amp Apixaban (Eliquis -) 5 mg PO BID [facility] Last Admin: 07/22/19 10:15 Dose: 5 mg Aspirin (Asa -) 81 mg PO DAILY [facility] Last Admin: 07/22/19 10:14 Dose: 81 mg Bupropion HCl (Wellbutrin Xl -) 150 mg PO DAILY [facility] Last Admin: 07/22/19 10:15 Dose: 150 mg Diltiazem HCl (Cardizem Cd -) 360 mg PO DAILY [facility] Last Admin: 07/22/19 10:14 Dose: 360 mg Guaifenesin (Robitussin -) 10 ml PO Q6H PRN PRN Reason: COUGH Last Admin: 07/18/19 23:33 Dose: 10 ml Ceftriaxone Sodium 1 gm/ (Dextrose) 50 mls @ 100 mls/hr IVPB DAILY [facility]; Protocol Last Admin: 07/22/19 10:16 Dose: 100 mls/hr Losartan Potassium (Cozaar -) 50 mg PO DAILY [facility] Last Admin: 07/22/19 10:15 Dose: 50 mg Methylprednisolone Sodium Succinate (Solu-Medrol -) 40 mg IVPUSH BID [facility] Last Admin: 07/22/19 10:16 Dose: 40 mg Polyethylene Glycol (Miralax (For Daily Use) -) 17 gm PO BID [facility] Last Admin: 07/22/19 10:15 Dose: 17 gm Thiamine HCl (Vitamin B1 -) 100 mg PO DAILY [facility] Last Admin: 07/22/19 10:16 Dose: 100 mg Trazodone HCl (Desyrel -) 100 mg PO HS [facility] Last Admin: 07/21/19 22:47 Dose: Not Given - Objective Vital Signs: Vital Signs Temperature 97.8 F 07/22/19 09:00 Pulse Rate 96 H 07/22/19 09:00 Respiratory Rate 20 07/22/19 09:00 Blood Pressure 119/54 L 07/22/19 09:00 O2 Sat by Pulse Oximetry (%) 94 L 07/22/19 09:00 Constitutional: Yes: Well Nourished, No Distress, Calm Cardiovascular: Yes: WNL, Regular Rate and Rhythm Respiratory: Yes: WNL, Regular, CTA Bilaterally Gastrointestinal: Yes: WNL, Normal Bowel Sounds, Soft Musculoskeletal: Yes: WNL Extremities: Yes: WNL Edema: No Labs: CBC, BMP 07/22/19 06:00 07/21/19 07:05 Problem List - Problems (1) Acute exacerbation of chronic obstructive pulmonary disease (COPD) Code(s): J44.1 - CHRONIC OBSTRUCTIVE PULMONARY DISEASE W (ACUTE) EXACERBATION (2) PNA (pneumonia) Code(s): J18.9 - PNEUMONIA, UNSPECIFIED ORGANISM Qualifiers: Laterality: left Lung location: lower lobe of lung (3) Atrial fib/flutter, transient Code(s): [id number] - (4) HTN (hypertension) Code(s): I10 - ESSENTIAL (PRIMARY) HYPERTENSION Qualifiers: Hypertension type: essential hypertension Qualified Code(s): I10 - Essential (primary) hypertension Assessment/Plan Assessment: ILD LLL pneumonia P. Afib HTN AAA Hx ETOH abuse PAD Spinal stenosis Depression Insomnia Plan: -cw IV abx, transition to PO in AM -cw IV steroids, transition to PO in AM, taper -inhaled nebs -smoking cessation counseling -repeat CT in 6 weeks -sputum AFB pending, fu final -pulm eval -cw current regimen
[2019-07-22] MEDS: traZODone HCL 50 MG TABLET (FP) PO SCH ×2 (22:15→22:22)
[2019-07-23 06:54] VITALS: PULSE 100
[2019-07-23 07:17] LABS: BASO % 0.5 % (0-2.0); HEMATOCRIT 45.1 % (35.4-49); HEMOGLOBIN 15.5 GM/dL (11.7-16.9); LYMPH % 11.7 % (8-40); MCH 30.8 pg (25.7-33.7); MCHC 34.4 g/dl (32.0-35.9); MEAN CELL VOLUME 89.6 fl (80-96); MEAN PLT VOLUME 6.6 fl (7.5-11.1); MONO % 6.2 % (3.8-10.2); NEUT % 80.6 % (42.8-82.8); PLATELET COUNT 490 K/MM3 (134-434); RBC 5.04 M/mm3 (4.00-5.60); RDW 13.5 % (11.9-15.9); WHITE BLOOD COUNT 21.7 K/mm3 (4.0-10.0)
[2019-07-23] MEDS: ALBUTEROL SO4 2.5/IPRATROPIUM 0.5 INH SOL 3 ML VIAL.NEB. NEB SCH (07:20)
--- NOTE | 2019-07-23 07:43 | PN ---
Progress Note (short form) - Note Progress Note: Feels better, less SOB, less cough, afebrile. WBC 21K stiill, likely from steroids, will f/u as outpatient Vital Signs - 24 hr 07/22/19 07/22/19 07/22/19 08:57 09:00 14:00 Temperature 97.8 F 98.2 F Pulse Rate 96 H 52 L Respiratory 20 20 Rate Blood Pressure 119/54 L 123/77 O2 Sat by Pulse 94 L 94 L Oximetry (%) 07/22/19 07/22/19 07/22/19 18:00 21:00 22:00 Temperature 97.8 F 98.6 F Pulse Rate 94 H 99 H Respiratory 20 20 Rate Blood Pressure 112/88 127/100 O2 Sat by Pulse 96 96 Oximetry (%) 07/23/19 07/23/19 02:00 06:00 Temperature 98.8 F 98.7 F Pulse Rate 94 H 100 H Respiratory 17 Rate Blood Pressure 115/89 134/84 O2 Sat by Pulse Oximetry (%) AWAKE, ALERT, NAD NECK-NO JVD LUNGS-SLIGHTLY DECREASED BS LLL, NO RALES, NO WHEEZING HEART S1S2 REGULAR ABDOMEN SOFT, NT LE NO CCE Laboratory Results - last 24 hr 07/22/19 07/23/19 06:00 06:21 WBC 21.7 H RBC 5.04 Hgb 15.5 Hct 45.1 MCV 89.6 MCH 30.8 MCHC 34.4 RDW 13.5 Plt Count 490 H MPV 6.6 L Absolute Neuts (auto) 17.5 H Neutrophils % 80.6 Neutrophils % (Manual) 76.5 Band Neutrophils % 2.9 Lymphocytes % 11.7 Lymphocytes % (Manual) 4.9 L D Monocytes % 6.2 D Monocytes % (Manual) 3 L Eosinophils % 1.0 D Eosinophils % (Manual) 0.0 Basophils % 0.5 Basophils % (Manual) 0.0 Myelocytes % (Man) 1 D Promyelocytes % (Man) 0 Blast Cells % (Manual) 0 Nucleated RBC % 0 0 Metamyelocytes 8 H D Hypochromia 0 Platelet Estimate Normal Polychromasia 1+ Poikilocytosis 1+ Anisocytosis 1+ Microcytosis 1+ Macrocytosis 0 Dee Cells 1+ Current Active Problems Problem Status Onset Acute exacerbation of chronic obstructive pulmonary disease (COPD) ILD PAD Acute PNA (pneumonia) LLL Acute Shortness of breath Acute PLAN D/C STEROIDS D/C HOME ON PO AUGMENTIN BID F/U IN THE OFFICE NEXT WEEK. F/U CT CHEST IN 3 MONTHS. Problem List - Problems (1) Shortness of breath Code(s): R06.02 - SHORTNESS OF BREATH (2) Atrial fib/flutter, transient Code(s): EQJ5045 - (3) COPD (chronic obstructive pulmonary disease) Code(s): J44.9 - CHRONIC OBSTRUCTIVE PULMONARY DISEASE, UNSPECIFIED Qualifiers: COPD type: emphysema (4) HTN (hypertension) Code(s): I10 - ESSENTIAL (PRIMARY) HYPERTENSION Qualifiers: Hypertension type: essential hypertension Qualified Code(s): I10 - Essential (primary) hypertension (5) PNA (pneumonia) Code(s): J18.9 - PNEUMONIA, UNSPECIFIED ORGANISM Qualifiers: Laterality: left Lung location: lower lobe of lung
--- NOTE | 2019-07-23 07:44 | DS ---
Physical Examination Vital Signs: Vital Signs Temperature 98.7 F 07/23/19 06:00 Pulse Rate 100 H 07/23/19 06:00 Respiratory Rate 17 07/23/19 06:00 Blood Pressure 134/84 07/23/19 06:00 O2 Sat by Pulse Oximetry (%) 96 07/22/19 22:00 Constitutional: Yes: No Distress, Anxious Eyes: Yes: Conjunctiva Clear, EOM Intact HENT: Yes: Atraumatic, Normocephalic. No: Drooling Neck: Yes: Supple, Trachea Midline. No: Decreased ROM, Lymphadenopathy, Rigid, Tenderness, Thyromegaly Cardiovascular: Yes: Regular Rate and Rhythm, S1, S2. No: Bradycardia, Tachycardia Respiratory: Yes: Regular, Diminished (LLL). No: On Nasal O2 Gastrointestinal: Yes: Normal Bowel Sounds, Soft, Abdomen, Obese ...Rectal Exam: Yes: Deferred Renal/: No: Anuria, Bladder Distention, CVA Tenderness - Left, CVA Tenderness - Right Breast(s): Yes: WNL Musculoskeletal: No: Back Pain, Joint Stiffness, Joint Swelling Extremities: No: Amputation, Calf Tenderness, Cold, Cyanosis Edema: No Peripheral Pulses WNL: No Integumentary: Yes: WNL Neurological: Yes: WNL ...Motor Strength: WNL Psychiatric: Yes: WNL Labs: CBC, BMP 07/23/19 06:21 Discharge Summary Problems reviewed: Yes Reason For Visit: sob, pna, ild/copd Current Active Problems Acute exacerbation of chronic obstructive pulmonary disease (COPD) (Acute) PNA (pneumonia) (Acute) Shortness of breath (Acute) Condition: Improved - Instructions Referrals: Candido Brantley MD [Primary Care Provider] - - Home Medications Comprehensive Discharge Medication List: Ambulatory Orders Multivitamin [Multiple Vitamins] 1 each PO DAILY 03/09/19 Varenicline Tartrate [Chantix -] 1 mg PO DAILY 03/09/19 traZODone HCL [Trazodone HCl] 100 mg PO HS 03/09/19 Apixaban [Eliquis -] 5 mg PO BID #60 tablet 03/16/19 Aspirin [ASA -] 81 mg PO DAILY tab.chew 03/16/19 Docusate Sodium [Colace -] 100 mg PO BID PRN #14 capsule 03/16/19 Oxycodone HCl/Acetaminophen [Percocet 5-325 mg Tablet] 1 - 2 tab PO Q6H PRN #30 tab MDD 8 03/16/19 Diltiazem Cd [Cardizem Cd -] 120 mg PO DAILY #60 cap.cd.24h 03/17/19 Walker [Ultra-Light Rollator] 1 each MC DAILY #1 each 03/17/19
[2019-07-23 08:03] LABS: BLOOD UREA NITROGEN 21.5 mg/dL (7-18); CALCIUM 9.2 mg/dL (8.5-10.1); CREATININE 0.7 mg/dL (0.55-1.3); POTASSIUM 5.1 mmol/L (3.5-5.1)
[2019-07-23] MEDS ORDERED: DEXTROSE 5%-WATER - 50 ML IVPB ONE (09:16)
[2019-07-23] MEDS ORDERED: cefTRIAXone SODIUM 1 GM VIAL ONE (09:16)
[2019-07-23 09:41] VITALS: BP 117/77; TEMP 98.8
[2019-07-23] MEDS: CEFTRIAXONE 1 GM in DEXTROSE 5%-WATER - 50 ML IVPB SCH (09:41)
[2019-07-23] MEDS: APIXABAN 5 MG TABLET PO SCH (09:42)
[2019-07-23] MEDS: THIAMINE HCL 100 MG TABLET (FP) PO SCH (09:42)
[2019-07-23] MEDS: ASPIRIN 81 MG CHEWABLE TABLETS PO SCH (09:42)
[2019-07-23] MEDS: LOSARTAN POTASSIUM 50 MG TABLET (FP) PO SCH (09:42)
[2019-07-23] MEDS: POLYETHYLENE GLYCOL 3350 119 GM BTL PO SCH (09:49)
[2019-07-23 11:35] LABS: ANISOCYTOSIS 1+; MACROCYTOSIS 0; OVALOCYTE 1+; PLATELET ESTIMATE NORMAL; TEAR DROP CELLS 1+
== END 2019-07-23 11:31 | disposition home or self-care (01) | DRG 190 ==
LOC: JER 14:03 → JERBED 15:12 → J4W 20:47
PROVIDERS: ADMIT Internal Medicine; ATTEND Internal Medicine
DX: J44.1 Chronic obstructive pulmonary disease with (acute) exacerbation (principal); J18.1 Lobar pneumonia, unspecified organism; I48.92 Unspecified atrial flutter; J98.11 Atelectasis; I48.0 Paroxysmal atrial fibrillation; R06.02 Shortness of breath; I70.229 Atherosclerosis of native arteries of extremities with rest pain, unspecified extremity; M54.17 Radiculopathy, lumbosacral region; I10 Essential (primary) hypertension; J44.9 Chronic obstructive pulmonary disease, unspecified; M48.00 Spinal stenosis, site unspecified; F32.9 Major depressive disorder, single episode, unspecified; G47.00 Insomnia, unspecified
CPT/HCPCS: 36415; 71046-TC-FY; 71250-TC; 80048; 80053; 81003; 83605; 84100; 85025; 85027; 87040; 87070; 87086; 87116; 87205; 87206; 93005; 93010; 93306-TC; 94640; 99284-25